=== PATIENT | male | born 1955 | race Caucasian/White ===

== ENCOUNTER → 2024-12-18 | Outpatient (CLI) | payer MEDICARE, SELFPAY ==
[2024-12-21 13:07] LABS: H. PYLORI STOOL AG Negative (Negative)
== END | disposition home or self-care (01) ==
LOC: MTLAB 12:40
PROVIDERS: PCP Family Medicine
DX: R10.13 Epigastric pain (principal); K21.9 Gastro-esophageal reflux disease without esophagitis
CPT/HCPCS: 87338

== ENCOUNTER 2025-02-10 05:14 | Day surgery (SDC) | payer MEDICARE, SELFPAY ==
[2025-02-10] VITALS (9 sets, daily range): BP systolic 89–159; BP diastolic 69–94; PULSE 65–67; RESP 16–18; TEMP 36.5–36.8; O2SAT 95–98; BMI 28.8
--- OUTSIDE RECORDS SUMMARY | 2025-02-10 05:17 | XMS RPT_ITS | CCD ---
Author Organization [facility] Care Team Providers Care Landscape Painter Name Role Phone STEPHANIE GREEN MD Admitting Unavailable STEPHANIE GREEN MD Attending Unavailable STEPHANIE GREEN MD Primary Care Unavailable IRMA GREEN Referring Unavailable IRMA GREEN Consulting Unavailable PROVIDER, UNKNOWN Consulting Unavailable PROVIDER, UNKNOWN Consulting Unavailable PROVIDER, UNKNOWN Consulting Unavailable IRMA GREEN Admitting Unavailable IRMA GREEN Attending Unavailable IRMA GREEN Primary Care Unavailable IRMA GREEN Referring Unavailable IRMA GREEN Consulting Unavailable PROVIDER, UNKNOWN Consulting Unavailable PROVIDER, UNKNOWN Consulting Unavailable PROVIDER, UNKNOWN Consulting Unavailable Stephanie Green Primary Care Provider [phone] STEPHANIE GREEN Primary Care Unavailable SHEILA NOLAN Attending Unavailable STEPHANIE GREEN Primary Care Unavailable AISHA LOPEZ Referring UnavailSTEPHANIE Jauregui Primary Care Unavailable AISHA LOPEZ Referring UnavailAISHA Marcos Attending UnavailSTEPHANIE Jauregui Primary Care Unavailable IRMA GREEN MD Unavailable STEPHANIE GREEN MD Unavailable REY Unavailable Unavailable ENT, GENERAL Unavailable Unavailable JONI LAWRENCE MD Unavailable [phone] Myla Pereyra RN Unavailable Unavailable CR CARRANZA MD Unavailable Bladimir THOMPSON MD Unavailable YURI LAWRENCE Unavailable Unavailable Geronimo LAWRENCE MD Unavailable JAYLEEN ALLEN Unavailable Unavailable Lucrecia Tan Unavailable Unavailable Kari Robbins Unavailable Unavailable LYNN ROBBINS MD Unavailable Asa RN, Alyson Unavailable Unavaila leonie Zuñiga RN, Tessy Unavailable Unavailable Unavailable Unavailable Unavailable Unavailable Jan PORTILLO, Lucrecia Attending Provider [phone] Jose BARTON, Dr. Olivo Primary Care Provider Jan TREJOC, Lucrecia Referring Provider Lucrecia Montoya Attending Unavailable Lucrecia Montoya Attending Unavailable Lucrecia Montoya Referring Unavailable Irma Green Primary Care Unavailable Irma Green Referring Unavailable FriendTim Attending Unavailable Irma Green Primary Care Unavailable Allergies Allergy Classification Reported Allergen(s) Allergy Type Date of Onset Reaction(s) Facility (7 sources) Lactose; Translations: [LACTOSE] Drug Allergy 03-23-20 15 [facility] Work Phone: (5 sources) Wheat gluten extract; Translations: [GLUTEN] Drug Allergy 03-23-20 15 [facility] Work Phone: (6 sources) hydroCHLOROthiazide Drug Allergy [facility]. (12 sources) Kendell (Renamed from KENDELL Inhibitors) Cough [facility]. (2 sources) Codeine Drug Allergy 12-16-19 25 [facility] (1 source) Codeine Drug Allergy 02-06-20 25 [facility] (1 source) Lactose Drug Allergy 02-06-20 25 [facility] Medications Current Medications Medication Drug Class(es) Dates Sig (Normalized) Sig (Original) acetaminophen 325 mg / oxyCODONE hydrochloride 5 mg oral tablet (2 sources) Opioid Agonist Start: 05-04-2015 Oxycodone-Acetamino phen 1 TABLET tablet Active 1 {tbl} PO EVERY 6 HOURS NEEDED as needed for Pain May 04, 2015 12:00am chlorproMAZINE hydrochloride 10 mg oral tablet (2 sources) Phenothiazine Start: 05-04-2015 Chlorpromazine Hcl 10 MG tablet Active 25 mg PO Q8H as needed for Hiccups May 04, 2015 12:00am Daily Multiple Vitamin oral tablet (6 sources) take 1 tablet by mouth once daily Daily Multiple Vitamin oral tablet ; 1 daily Comments: OTC Comment on above: OTC famotidine 40 mg oral tablet (2 sources) Histamine-2 Receptor Antagonist Start: 12-15-2024 take 1 tablet by mouth at bedtime Famotidine 40 mg tablet Active 40 mg PO AT BEDTIME December 15, 2024 12:00am iv contrast (will be provided with radiology test) (1 source) Start: 01-23-2023 End: 01-23-2023 inject 1 dose intravenously once, then inject 1 dose intravenously once iv contrast (will be provided with radiology test) Indications: Encounter for follow-up examination after completed treatment for malignant neoplasm , History of cancer tonsil , Sore throat Inject 1 Each intravenously one time only for [address] Neck W IVCON No IV access, insert saline lock prior to the sedation, infusion, injection for imaging exam. Discontinue saline lock post exam. If Pt. has a central line or IVAD, may access for administration according to line specific nursing protocol. Once exam is complete flush line and de-access according to line specific nursing protocol in the CT contrast administration guidelines link. 1 Each 0 01/23/2023 01/23/2023 Active Comment on above: Inject 1 Each intrav enously one time only for [address] Neck W IVCON No IV access, insert saline lock prior to the sedation, infusion, injection for imaging exam. Discontinue saline lock post exam. If Pt. has a central line or IVAD, may access for administration according to line specific nursing protocol. Once exam is complete flush line and de-access according to line specific nursing protocol in the CT contrast administration guidelines link. Lactose-Reduced Food With Fibr (Jevity 1.5 Gary) 1,500 ML liquid (2 sources) Start: 05-04-2015 take 1 mL by mouth five times daily Lactose-Reduced Food With Fibr (Jevity 1.5 Gary) 1,500 ML liquid Active 237 mL PO 5 TIMES DAILY May 04, 2015 12:00am losartan potassium 100 mg oral tablet (12 sources) Angiotensin 2 Receptor Horace Start: 08-05-2024 losartan 100 mg tablet ; 1 (one) Tablet daily for 90 days Quantity: 90 {Tablet} Refills: 3 Ordered: 05-Aug-2024 MD IRMA GREEN Start: 05-Aug-2024 Start: 06-28-2023 losartan 100 m g tablet ; 1 (one) Tablet daily for 90 days Quantity: 90 {Tablet} Refills: 3 Ordered: 28-Jun-2023 MD IRMA GREEN Start: 28-Jun-2023 Start: 04-10-2015 Losartan 100 M G tablet Active 50 mg PO DAILY April 10, 2015 12:00am Start: 02-22-2015 [facility] losartan (COZAAR) 100 mg tablet Take 100 mg by mouth once daily. 0 02/22/2015 Active Comment on above: Take 100 mg by mouth once daily. omeprazole 40 mg delayed release oral capsule (4 sources) Proton Pump Inhibitor Start: 12-15-2024 Omeprazole 40 mg capsule,delayed release(DR/EC) Active 40 mg PO TWICE A DAY 60 December 15, 2024 12:00am Take 30 minutes before eating breakfast and dinner. Start: 04-26-2015 take 1 capsule by mo [facility] once daily Omeprazole (Prilosec) 40 MG capsule Active 40 mg PO DAILY April 26, 2015 12:00am ondansetron 8 mg disintegrating oral tablet (2 sources) Serotonin-3 Receptor Antagonist Start: 05-04-2015 take 1 tablet by mouth every eight hours as needed for nausea Ondansetron (Zofran Odt) 8 MG tablet,disintegrating Active 8 mg PO EVERY 8 HOURS NEEDED as needed for Nausea May 04, 2015 12:00am potassium chloride 1.33 meq/ml oral solution (6 sources) Start: 05-07-2015 take 40 mEq by mouth twice daily Potassium Chloride 20 MEQ/15 ML liquid Active 40 meq PO TWICE A DAY 14 May 07, 2015 12:00am Start: 04-26-2015 Potassium Chlo ride (Klor-Con M20) 20 MEQ tablet Active 20 meq GT TWICE A DAY April 26, 2015 12:36pm Start: 04-11-2015 End: 04-26-2015 take 1 tablet by mouth three times daily Potassium Chloride (K-Dur) 20 MEQ tablet Discontinued 20 meq PO THREE TIMES A DAY 60 April 11, 2015 12:00am April 26, 2015 12:36pm take 1 tb tid x 3 days then keep the rest medicine and take only if instructed by your doctor. verapamil hydrochloride 120 mg extended release oral tablet (14 sources) Calcium Channel Horace Start: 04-26-2015 take 1 tablet by mouth once daily Verapamil 120 MG tablet extended release Active 120 mg PO DAILY April 26, 2015 12:00am Start: 04-10-2015 End: 04-11-2015 Verapamil 120 MG tablet Disc ontinued 0.5 {tbl} PO DAILY April 10, 2015 12:00am April 11, 2015 11:07am Start: 01-25-2015 take 0.5 tablet by m outh once daily verapamil SR (CALAN SR, ISOPTIN SR) 120 mg CR tablet Take 1/2 tablet by mouth once daily. 0 01/25/2015 Active Comment on above: Take 1/2 tablet by m outh once daily. Completed/Discontinued Medications Medication Drug Class(es) Dates Sig (Normalized) Sig (Original) Ascorbic Acid (4 sources) Vitamin C take 1 tablet by mouth once daily ASCORBIC ACID (VITAMIN C ORAL) Indications: Tonsil cancer (HCC) Take 1 tablet by mouth once daily. 0 Active Comment on above: Take 1 tablet by [facility] once daily. azithromycin 250 mg oral tablet (18 sources) Macrolide Antimicrobial Start: 06-28-2023 End: 07-03-2023 azithromycin 250 mg tablet ; 2 (two) Tablet on day one, then 1 tablet daily for 4 days for 5 days Quantity: 6 {Tablet} Refills: 0 Ordered: 28-Jun-2023 MD IRMA GREEN Start: 28-Jun-2023 End: 03-Jul-2023 Status: Inactive Start: 04-06-2016 End: 04-11-2016 Azithromycin 250 MG Oral Tab let ; 2 (two) Tablet on day one, then 1 tablet daily for 4 days for 5 days Quantity: 6 {Tablet} Refills: 0 Ordered: 31-May-2016 MD IRMA GREEN Start: 06-Apr-2016 End: 11-Apr-2016 Status: Inactive Start: 08-14-2014 End: 08-19-2014 AZITHROMYCIN, 250MG (Oral Ta blet) ; 2 x 1 then 1 x 4 Tablet daily for 5 days Quantity: 6 {Tablet} Refills: 0 Ordered: 14-Aug-2014 MD CR CARRANZA Start: 14-Aug-2014 End: 19-Aug-2014 Status: Inactive Comments: take two tablets day one and then one tablet daily for 4 days Comment on above: take two tablets day one and then one tablet daily for 4 days Calcium Carbonate / vitamin D3 (4 sources) take 1 capsule by mouth once daily CALCIUM CARBONATE/VITAMIN D3 (CALCIUM + D ORAL) Take 1 capsule by mouth once daily. 0 Active Comment on above: Take 1 capsule by [facility] once daily. codeine phosphate 2 mg/ml / guaiFENesin 20 mg/ml oral solution (6 sources) Opioid Agonist Start: 3 End: 3 take 1 [tsp_us] by mouth every six hours as needed GUAIFENESIN AC, 100-10MG/5ML (Oral Syrup) ; 1 (one) tsp every six hours as needed for cough for 5 days Quantity: 4 {oz} Refills: 0 Ordered: 18-Nov-2013 MD LYNN ROBBINS Start: 27-Jun-2013 End: 02-Jul-2013 Status: Inactive Comments: Medication taken as needed. Do not take while driving Comment on above: Medication taken as needed. Do not take while driving doxycycline monohydrate 100 mg oral capsule (12 sources) Tetracycline-class Drug Start: 6 End: 6 take 1 capsule by mouth twice daily Doxycycline Monohydrate 100 MG Oral Capsule ; 1 (one) Capsule two times daily for 7 days Quantity: 14 {Capsule} Refills: 0 Ordered: 31-May-2016 MD IRMA GREEN Start: 10-Apr-2016 End: 17-Apr-2016 Status: Inactive Start: 05-27-2012 End: 06-06-2012 take 1 capsule by mouth twice daily DOXYCYCLINE HYCLATE, 100MG (Oral Capsule) ; 1 Capsule two times daily for 10 days Quantity: 20 {Capsule} Refills: 0 Ordered: 12-Jun-2012 MD STEPHANIE GREEN Start: 27-May-2012 End: 06-Jun-2012 Status: Inactive hydroCHLOROthiazide 25 mg oral tablet (8 sources) Thiazide Diuretic Start: 04-10-2014 End: 06-22-2015 take 1 tablet by mouth once daily Hydrochlorothiazide 25 MG tablet Discontinued 25 mg PO DAILY April 10, 2015 12:00am April 11, 2015 11:07am Comment on above: Amanda Blanco. MULTIVITAMIN ORAL (4 sources) take 1 tablet by mouth once daily MULTIVITAMIN ORAL Take 1 tablet by mouth once daily. 0 Active Comment on above: Take 1 tablet by avani th once daily. oxyCODONE hydrochloride 10 mg oral tablet (6 sources) Opioid Agonist take 2 tablets by mouth every six hours OXYCODONE HCL, 10MG (Oral Tablet) ; 2 q 6 hrs pain (10 MG) Status: Inactive Comments: Dr Lozada Comment on above: Dr Lozada Potassium (4 sources) take 1 tablet by mouth every other day POTASSIUM ORAL Take 1 tablet by mouth every other day. 0 Active Comment on above: Take 1 tablet by avani th every other day. pravastatin sodium 10 mg oral tablet (6 sources) HMG-CoA Reductase Inhibitor Start: 03-13-2012 End: 05-27-2012 take 1 tablet by mouth at bedtime PRAVASTATIN SODIUM, 10MG (Oral Tablet) ; 1 (one) Tablet at bedtime for 30 days Quantity: 30 {Tablet} Refills: 12 Ordered: 27-May-2012 DEION Bray Start: 13-Mar-2012 End: 27-May-2012 Status: Inactive red yeast rice 600 mg oral capsule (6 sources) take 1 capsule by mouth twice daily RED YEAST RICE EXTRACT, 600MG (Oral Capsule) ; 1 two times daily (600 MG) Status: Inactive Problems Active Problems Problem Classification Problem Date Documented Da te Episodic/Chronic Abdominal pain (5 sources) Epigastric pain; Translations: [Epigastric pain] Onset: 5 12-15-2024 Episodic Acute bronchitis (6 sources) Acute bronchitis 10-04-2011 Episodic Administrative/social admission (20 sources) Issue of repeat prescriptions 01-25-2012 Episodic Cancer of head and neck (20 sources) Malignant tumor of tonsil; 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 Biopsy Danuta Montilla, ENT, [place]; to Eddy Lozada, [facility] Treatment ended 05-21-15S/P Chemotherapy. Cancer of head and neck (3 sources) History of malignant neoplasm of tonsil; Translations: [Personal history of malignant neoplasm of other sites of lip, oral cavity, and pharynx] Onset: 3 01-23-2023 Episodic Chronic obstructive pulmonary disease and bronchiectasis (18 sources) Bronchitis; Translations: [Bronchitis, not specified as acute or chronic] 04-10-2016 Episodic Disorders of lipid metabolism (20 sources) Hyperlipidemia; Translations: [Hyperlipidemia, unspecified] 10-16-2022 Chronic Comment on above: diet controlled. 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 12-07-2016 Chronic Immunizations and screening for infectious disease (12 sources) Requires diphtheria, tetanus and pertussis vaccination; Translations: [Encounter for immunization] 06-22-2015 Episodic Other aftercare (2 sources) H/O: malignant neoplasm; Translations: [Encounter for follow-up examination after completed treatment for malignant neoplasm] 01-23-2023 Episodic Other aftercare (1 source) Encounter for follow-up examination after completed treatment for malignant neoplasm; Translations: [Encounter for follow-up examination after completed treatment for malignant neoplasm] Onset: Episodic Other aftercare (6 sources) Patient encounter status; Translations: [Encounter for therapeutic drug level monitoring] 01-22-2016 Episodic Other connective tissue disease (6 sources) Pain in left thumb; Translations: [Pain in left finger(s)] 09-01-2014 Episodic Other gastrointestinal disorders (2 sources) Finding of abdomen; Translations: [Other specified symptoms and signs involving the digestive system and abdomen] 12-15-2024 Episodic Other liver diseases (2 sources) Fatty (change of) liver, not elsewhere classified; Translations: [Nonalcoholic fatty liver disease] 04-11-2015 Chronic Other lower respiratory disease (6 sources) Cough; Translations: [Cough] 08-14-2014 Episodic Other nutritional; endocrine; and metabolic disorders (12 sources) Obese class I; Translations: [Obesity, unspecified] 12-07-2016 Chronic Other nutritional; endocrine; and metabolic disorders (20 sources) H/O: raised blood lipids; Translations: [Personal history of other endocrine, nutritional and metabolic disease] 06-18-2017 Episodic Other nutritional; endocrine; and metabolic disorders (12 sources) Overweight; Translations: [Overweight] 12-23-2012 Episodic Other screening for suspected conditions (not mental disorders or infectious disease) (12 sources) Screening status; Translations: [Encounter for screening for malignant neoplasm of prostate] 03-12-2012 Episodic Other skin disorders (12 sources) Mass of neck; Translations: [Localized swelling, mass and lump, neck] 12-16-2014 Episodic Comment on above: Right side. Other upper respiratory infections (7 sources) Bacterial sinusitis; Translations: [Chronic sinusitis, unspecified] 09-29-2021 Chronic Other upper respiratory infections (15 sources) Sore throat symptom; Translations: [Acute pharyngitis, unspecified] Onset: 3 01-23-2023 Episodic Pneumonia (except that caused by tuberculosis or sexually transmitted disease) (18 sources) Atypical pneumonia; Translations: [Pneumonia, unspecified organism] 06-28-2023 Episodic Unclassified (6 sources) [facility] Onset: 5 05-12-2015 Comment on above: N/V due to chemo; Di yonas 05/11/15 Unclassified (6 sources) LAB DRAW - The labs drawn today include: CMP, Hgb A1C, Lipid Panel and PSA. The lab was drawn from the left antecubital vein. The lab was ordered by Dr. Robbins. 03-12-2012 Unclassified (6 sources) LAB DRAW - The labs drawn today include: CMP and Lipid Panel. The lab was drawn from the left antecubital vein. The lab was ordered by Dr. Dr. Green. 01-05-2011 Past or Other Problems Problem Classification Problem Date Documented Date Episodic/Chronic Coronary atherosclerosis and other heart disease (20 sources) Coronary atherosclerosis and other heart disease 10-16-2022 Disorders of teeth and jaw (4 sources) Tooth disorder; Translations: [Disorder of teeth and supporting structures, unspecified] Onset: 01-30-2018 01-30-2018 Episodic Headache; including migraine (20 sources) Headache; including migraine 10-16-2022 Unclassified (6 sources) Fever - The onset of the fever has been acute. Note for Fever: Pt c/o body aches, chills, sore throat, and slight cough. Denies runny nose. Symptoms started a few weeks ago. 06-28-2023 Unclassified (6 sources) !Patient notification of lab results - Dr. Green. The test(s) that you had done were/was a CMP (kidneys, liver, nutrition, sugar) and a lipid panel (cholesterol and triglycerides). The results of your testing were to goal . You should call our office if you have any questions. 08-07-2019 Unclassified (5 sources) HYPERTENSION - Note for HYPERTENSION: No headaches, dizzy spells, swelling of ankles, chest pain or shortness of breath. Some cough. 08-05-2019 Unclassified (5 sources) [ADDITIONAL REASON] Immunization - Immunizations discussed with patient/ parent: yes. Note for For immmunization: Does not take vaccinations 08-05-2019 Unclassified (2 sources) Immunization - Immunizations discussed with patient/ parent: yes (declines flu shot). 07-04-2018 Unclassified (6 sources) !Patient notification of lab results - Jose. The test(s) that you had done were/was a CMP (kidneys, liver, nutrition, sugar) and a lipid panel (cholesterol and triglycerides). Your tests showed the following abnormalities: high cholesterol, otherwise OK . Please note that we have included copies of your results and follow up as scheduled. 06-18-2017 Unclassified (2 sources) Immunization - Immunizations discussed with patient/ parent: yes. 06-18-2017 Unclassified (2 sources) [ADDITIONAL REASON] HYPERTENSION - Note for HYPERTENSION: No headaches, dizzy spells, swelling of ankles, chest pain or shortness of breath. Has dry mouth from Chemo therapyFasting for Lab work. 06-18-2017 Unclassified (6 sources) HYPERTENSION - Note for HYPERTENSION: Last visit was 8 months ago.. 12-07-2016 Unclassified (6 sources) !Patient notification of lab results 1 - Jose. The test(s) that you had done were/was a BMP (potassium, sodium, sugar, and kidney function) and a lipid panel (cholesterol and triglycerides). Your tests showed the following abnormalities: high cholesterol . (Your cholesterol is a bit higher than last time we checked it. I think you can control this with diet and weight loss. We should recheck it again in 6 months. If it remains high, it would be recommended to start a cholesterol-lowering medication.) You should call our office if you have any questions. 04-07-2016 Unclassified (2 sources) cough - The onset of the cough has been acute and has been occurring for 1 week. The symptoms have been associated with runny nose, while the symptoms have not been associated with fever. 04-06-2016 Unclassified (2 sources) [ADDITIONAL REASON] HYPERTENSION - Note for HYPERTENSION: Last visit was 5 months ago. 04-06-2016 Unclassified (6 sources) Routine Check - Patient is here to review the medical problem(s) of hypertension. Note for Routine Check : Starting to eat better. Here for exam. 08-17-2015 Unclassified (6 sources) Routine Check - Patient is here to review the medical problem(s) of hypertension. Note for Routine Check : needs refill on meds. Refused flu shot. Out of meds x 1-2 days. off HCTZ due to low Potassium. Here for exam. 06-22-2015 Unclassified (6 sources) !Patient notification of lab results 1 - Green. The test(s) that you had done were/was a CT scan. Your tests showed the following abnormalities: it looks like a clump of lymph nodes in the right side of the neck . You should call our office to schedule a referral (recommend seeing an ENT specialist in [place]). 12-16-2014 Unclassified (2 sources) Skin lesion - The skin lesion has been occurring for months. The skin lesion is characterized as raised above the skin. The skin lesion is located on the neck (right side). There has been no associated pain. 12-10-2014 Unclassified (6 sources) Injury - The patient reports that it was accidental (slipped on ice) and happened at home. The date of the injury was on 09-01-14. The injury is described as being located in the finger (left thumb).The pain is described as mild. The injury happened due to a falling down. Note for Injury: Here for exam. 09-01-2014 Unclassified (6 sources) cough - The onset of the cough has been sudden and has been occurring in a persistent pattern for 4 days. The course has been increasing. The cough is characterized as productive of purulent sputum. The symptoms have been associated with fever, hoarseness, runny nose, sore throat and wheezing, while the symptoms have not been associated with chest pain or dyspnea. 08-14-2014 Unclassified (6 sources) !Patient notification of lab results 1 - Jb. Note for !Patient notification of lab results 1: Carballo, your cholesterol and other labs look good. Keep doing what your doing! 04-10-2014 Unclassified (2 sources) [ADDITIONAL REASON] HYPERTENSION - Note for HYPERTENSION: No headaches, dizzy spells, or swelling of ankles. Is fasting for Lab 04-10-2014 Unclassified (6 sources) sore throat - The onset of the sore throat has been sudden and has been occurring in a persistent pattern for 1 week. The course has been worsening. The symptoms have been associated with chills, cough, fever and runny nose. 06-27-2013 Unclassified (6 sources) !Patient notification of lab results 1 - Jose. The test(s) that you had done were/was a CMP (kidneys, liver, nutrition, sugar) and a lipid panel (cholesterol and triglycerides). Your tests showed the following abnormalities: mkildly elevated cholesterol . Please note that we have included copies of your results, continue your current medication/therapy and follow up as scheduled. 05-27-2013 Unclassified (6 sources) HYPERTENSION - Note for HYPERTENSION: No headaches, dizzy spells, or swelling of anklesIs also fasting for lab work. 05-26-2013 Unclassified (6 sources) HYPERTENSION - Note for HYPERTENSION: No headaches, dizzy spells, or swelling of ankles 12-23-2012 Unclassified (6 sources) !Patient notification of lab results 1 - Dr. Green. The test(s) that you had done were/was a CMP (kidneys, liver, nutrition, sugar) and a lipid panel (cholesterol and triglycerides). Your tests showed the following abnormalities: high cholesterol . Please adjust your therapy by increasing red yeast rice to 3/day. Please note that we have included copies of your results. 06-25-2012 Unclassified (6 sources) cough - The onset of the cough has been acute and has been occurring for 6 weeks. Note for cough: feels dizzy when driving. Mucus in throat, but no head cold.. 05-27-2012 Unclassified (6 sources) !Patient notification of lab results 1 - Dr. Robbins. The test(s) that you had done were/was an A1C (three month sugar average), a CMP (kidneys, liver, nutrition, sugar), a lipid panel (cholesterol and triglycerides) and a PSA (blood test for prostate cancer). Your tests showed the following abnormalities: high NON HDL cholesterol . Please adjust your therapy by adding pravastatin 10 mgm daily, realize that we have sent the new prescription(s) to your preferred pharmacy and review the enclosed special instruction sheet(s) on non HDL cholesterol. You should call our office to schedule an appointment for repeat lab after being on your new dose 4 weeks (fasting cholesterol). Please note that we have included copies of your results and follow up as scheduled. 03-13-2012 Unclassified (2 sources) [ADDITIONAL REASON] HYPERTENSION - Note for HYPERTENSION: needs refill on meds. Clear up dosage on Verapamil.(120 or 240) 02-02-2012 Unclassified (5 sources) sore throat - The onset of the sore throat has been sudden and has been occurring for 5 days. The course has been worsening. The symptoms have been associated with chills, cough (occassional), fever and runny nose. 10-04-2011 Unclassified (5 sources) [ADDITIONAL REASON] cough - The onset of the cough has been gradual and has been occurring in a persistent pattern for 4 days. The course has been increasing. The cough is characterized as productive of mucoid sputum. The symptoms have been associated with fever, runny nose (clear) and sore throat (gone), while the symptoms have not been associated with chest pain, dyspnea or hoarseness. 10-04-2011 Unclassified (6 sources) *Patient notification of lab results 1 - Dr. Green. The test(s) that you had done were/was blood work. The results of your testing were normal (near normal) . Please note that we have included copies of your results. 01-12-2011 Unclassified (6 sources) HYPERTENSION - Note for HYPERTENSION: pt states he feels well with minor complaints (aches and pains), good compliance with medications 12-27-2010 Unclassified (6 sources) recheck - hypertension and reports no headaches. 06-17-2010 Unclassified (5 sources) [ADDITIONAL REASON] Immunization - Immunizations discussed with patient/ parent: yes (declines flu shot.). 08-05-2024 Unclassified (1 source) Immunization - Immunizations discussed with patient/ parent: yes. Note for For immmunization: Does not take vaccinations 08-05-2019 Unclassified (1 source) [ADDITIONAL REASON] HYPERTENSION - Note for HYPERTENSION: No headaches, dizzy spells, swelling of ankles, chest pain or shortness of breath. Some cough. 08-05-2019 Unclassified (1 source) cough - The onset of the cough has been gradual and has been occurring in a persistent pattern for 4 days. The course has been increasing. The cough is characterized as productive of mucoid sputum. The symptoms have been associated with fever, runny nose (clear) and sore throat (gone), while the symptoms have not been associated with chest pain, dyspnea or hoarseness. 10-04-2011 Unclassified (1 source) [ADDITIONAL REASON] sore throat - The onset of the sore throat has been sudden and has been occurring for 5 days. The course has been worsening. The symptoms have been associated with chills, cough (occassional), fever and runny nose. 10-04-2011 Unclassified (4 sources) [ADDITIONAL REASON] Immunization - Immunizations discussed with patient/ parent: yes (declines flu shot). 07-04-2018 Unclassified (4 sources) HYPERTENSION - Note for HYPERTENSION: No headaches, dizzy spells, swelling of ankles, chest pain or shortness of breath. Has dry mouth from Chemo therapyFasting for Lab work. 06-18-2017 Unclassified (4 sources) [ADDITIONAL REASON] Immunization - Immunizations discussed with patient/ parent: yes. 06-18-2017 Unclassified (4 sources) HYPERTENSION - Note for HYPERTENSION: Last visit was 5 months ago. 04-06-2016 Unclassified (4 sources) [ADDITIONAL REASON] cough - The onset of the cough has been acute and has been occurring for 1 week. The symptoms have been associated with runny nose, while the symptoms have not been associated with fever. 04-06-2016 Unclassified (4 sources) [ADDITIONAL REASON] Skin lesion - The skin lesion has been occurring for months. The skin lesion is characterized as raised above the skin. The skin lesion is located on the neck (right side). There has been no associated pain. 12-10-2014 Unclassified (4 sources) HYPERTENSION - Note for HYPERTENSION: No headaches, dizzy spells, or swelling of ankles. Is fasting for Lab 04-10-2014 Unclassified (4 sources) HYPERTENSION - Note for HYPERTENSION: needs refill on meds. Clear up dosage on Verapamil.(120 or 240) 02-02-2012 Results Test Name Value Interpretation Reference Range Facility H. PYLORI STOOL AGon 025 H PYLORI STL AG Negative Normal Negative [facility] Comment on above: Order Comment: PT KE PT IT OM ICE Result Comment: Perf ormed at: CB - [facility] [address] [id number] Catering Staff Member: Tay Lizarraga PhD, Phone: [phone] Performed By: #### L 3100.1950 #### [facility] [address] [place], [place], [id number] Stool Helicobacter pylori an tigen detection by immunoassayOrdered By: Lucrecia Montoya on 12-18-2024 H. pylori Ag IA Ql (Stl) Negative Negative [facility] Comment on above: Performed at: CB - [facility] [address] [id number] Director: Tay Lizarraga PhD, Phone: [phone] Gastroenterology Visit Repor ton 12-15-2024 Gastroenterology Visit Report [facility] [address] [place] [address] OFFICE VISIT Date of Service: 12/15/24 MR#: [id number] Acct: [id number] Name: PANIAGUAHARIS SOMMER Danuta Rep #: [id number] : 1955 Provider: BANDAR benjamin Age/Sex: 69/M [place] [facility] [place] [facility] [place]: Signed Intake Vital Signs 12/15/24 07:53 Height 5 ft 6 in Weight: 179 lb BMI 28.8 BP 144/90 H Blood Pressure Location Lt brachial Pulse 74 Pulse Oximetry (%) 96 Oxygen Delivery Method room air Intake Visit Reasons: Abdominal complaints Chief Complaint: nausea/vomiting Allergies codeine Adverse Reaction (Verified 12/15/24 07:50) Nausea lactose Adverse Reaction (Verified 12/15/24 07:50) Nausea Medications ???Medication ???Instructions ???Recorded ???Confirmed ???Type losartan 100 mg tablet 50 mg PO DAILY 04/10/15 12/15/24 H istory Omeprazole [Prilosec] 40 mg PO DAILY 04/26/15 05/04/15 H istory potassium chloride 20 mEq 20 meq G-tube BID 04/26/15 5 History tablet,extended release(part/cryst) (Klor-Con M) verapamil 120 mg tablet,extended 120 mg PO DAILY 04/26/15 12/15/24 History release Chlorpromazine Hcl 25 mg PO Q8H PRN Hiccups 05/04/15 05/04/15 History lactose-reduced food with fiber 237 ml PO 5X/DAY 05/04/15 05/04/15 History 0.06 gram-1.5 kcal/mL oral liquid (Jevity 1.5 Gary) ondansetron 8 mg disintegrating 8 mg PO Q8H PRN PRN Nausea 5 05/04/15 History tablet (Zofran ODT) oxycodone-acetaminoph en 5 mg-325 1 tab PO Q6H PRN PRN Pain 05/04/15 05/04/15 History mg tablet potassium chloride 20 mEq/15 mL 40 meq (30 mL) PO BID 14 days 04/1612/15/24 Rx oral liquid famotidine 40 mg tablet 40 mg PO QHS #30 tabs 12/15/2409/09 Rx omeprazole 40 mg capsule,delayed 40 mg PO BID #60 caps 12/15/2409/09 Rx release Have you fallen in the past year?: No PFSH Family History Mother Arthritis Hypertension Father Diabetes Social History Smoking Status: Never smoker alcohol intake: never HPI HPI Chief Complaint: nausea/vomiting Details: HARIS PANIAGUA, is a 69 M who presents to the office today for establishment with [facility] regarding epigastric abdominal pain that starts 2 hours postprandial. He had been diagnosed with tonsillar cancer, underwent chemotherapy and radiation therapy by Dr. Lozada. Reports frequent dry mouth due to saliva glands being damaged or removed. He knows to take smaller bites and keep foods moist to avoid difficulty swallowing. He reports that he does the best with mashed potato consistency. He reports increased sinus drainage and occasional reflux. He denies heartburn, cough, throat clearing, nausea, emesis, abdominal bloating, constipation, diarrhea, hematochezia, and melena. He states that the epigastric abdominal is not dependent on any type of food as it occurs after every meal now. It started being a mild pain occasionally. Currently he rates the pain as 7/10 and describes it as burning and gnawing. He denies taking any PPIs, H2As, Tums or Maalox. He just massages the area and deals with it. It doesn't completely relieve the pain, but helps a little. He denies knowing if he's ever had a H.pylori infection or ulcer before. 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 ROS Const Constitutional: Positive for fatigue; No chills, fever(s) or weight change Eyes Eyes: No change in vision ENT ENT: Positive for difficulty swallowing; No abnormal hearing Resp Respiratory: No cough Cardio Cardiology: Positive for leg pain with exertion; No chest pain at rest or chest pain with exertion Gastro GI: Positive for abdominal pain, bloating, difficulty swallowing and excessive flatus; No belching, change in bowel habits, change in stool character, coffee ground emesis, constipation, cramping, diarrhea, heartburn, feeling full early, incontinent of stools, Vomiting blood/hematemesis, Blood in stool, loose stools, Black,tarry stools, nausea/dyspepsia, pain with swallowing, vomiting or other Musc Musculoskeletal: Positive for joint pain, muscle weakness, stiffness, sciatica and leg pain with exertion Skin Skin: No yellowing of the eye or itchy eyes Neuro Neurology: No abnormal hearing Psych Psychiatric: No anxiety and No depression Endo Endocrine: Positive for fatigue; No cold intolerance, heat intolerance or weight change Aller/Imm Allergy/Immunologic: No food intolerance or itchy eyes Petr/Lymp Hematologic/Lymphatic : No easy bleeding or easy bruising Exam Const General: cooperative, healthy appearing, comfortable and no acute distress Nutritional Appearan (more content not included)... Normal [facility] No Panel Informationon 08-05 [facility] [place].; [facility]. [facility] [place].; [facility]. [facility].; [employer]. No Panel InformationOrdered By: Geronimo LAWRENCE on 08-05-2024 [employer]. Work Phone: No Panel Informationon 07-29 [employer]. CNOVon 02-12-2023 CNOV Office Visit (OTOLMN ) HARIS PANIAGUA ([id number]) 1955 M Date Time Provider Department 02/12/23 8:30 AM SHEILA NOLAN OTOLMN During your visit today, we recorded the following information about you: Sheila Nolan MD 03/14/2023 12:41 AM Signed [facility] established patient Previous Dr. Velasco patient, here for oncologic surveillance history bilateral tonsil cancers. 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 Former patient of Dr. Velasco. Patient has not been seen by ENT physician over the last 3 years, but has been experiencing increased phlegm and sore throat, as well as shortness of breath when breathing through his nose. Worse in the mornings and has been worsening since completing surgery. He also endorses weight loss Seen by Aisha on 01/23. [place] at the time revealed narrowed nasopharynx but no lesions, masses, or ulcerations. CT Neck on 01/30 with QUINN, no LAD. Patient also has a non-healing scab present below the auricle. States that scab has been present for 2 months without healing. PAST MEDICAL HISTORY Diagnosis Date Arm fracture, left Hypertension Hypoglycemia PAST SURGICAL HISTORY Procedure Laterality Date EGD PERCUTANEOUS PLACEMENT GASTROSTOMY TUBE 04/26/15 PICC LINE INSERT/CONSULT 05/09/2015 TONSILLECTOMY HX Current Outpatient Medications Medication Sig Dispense Refill POTASSIUM ORAL Take 1 tablet by mouth every other day. CALCIUM CARBONATE/VITAMIN D3 (CALCIUM + D ORAL) Take 1 capsule by mouth once daily. MULTIVITAMIN ORAL Take 1 tablet by mouth once daily. ASCORBIC ACID (VITAMIN C ORAL) Take 1 tablet by mouth once daily. losartan (COZAAR) 100 mg tablet Take 100 mg by mouth once daily. verapamil SR (CALAN SR, ISOPTIN SR) 120 mg CR tablet Take 1/2 tablet by mouth once daily. No current facility-administered medications for this visit. ALLERGIES Allergen Reactions Gluten GI Upset Upset stomach and diarrhea Lactose GI Upset Upset stomach FAMILY HISTORY Problem Relation Age of Onset other (CHF) Father Social History Tobacco Use Smoking status: Never Smokeless tobacco: Never Vaping Use Vaping Use: Never used Substance Use Topics Alcohol use: No Drug use: No REVIEW OF RADIOLOGICAL FILMS AND RECORDS: CT NECK 01/30/23 Negative for cervical soft tissue mass. Negative for cervical lymphadenopathy by size criteria. CT CHEST 01/30/23 No developing suspicious mass or adenopathy in the chest LABS: None PHYSICAL EXAM: Vitals - There were no vitals taken for this visit. Constitutional - General Appearance: well developed, well nourished, without obvious deformities Communication: speaks with a normal voice without hoarseness Head AND Face - Overall: Scab, left inferior pre-auricular. No other obvious scars, lesions or masses Parotid and submandibular glands: no masses or tenderness Facial strength: normal and equal bilaterally Ear, Nose, Mouth AND Throat - Ears: both left and right external auditory canals and TM's are normal, no external deformities Nasal exam: mucosa is pink, left nasal spur, visible turbinates are normal on anterior rhinoscopy Mastication: moderate dentition Oral Cavity and oropharynx: mucosa, hard and soft palates, tongue, tonsil area, posterior pharyngeal wall, lips and gums are without lesions Neck: appears symmetric, and on palpation is without masses or lymphadenopathy Thyroid: no asymmetry, thyromegaly, or thyroid nodules on palpation Cranial Nerves: II: Pupillary reflexes normal III, IV, : EOM normal V: 1,2,3: normal sensation VII: Normal strength in all divisions IX, X: Normal voice, palatal elevation and sensation XI: Shoulder strength normal XII: Tongue mobility normal ASSESSMENT: Haris Paniagua is a 67 year old male with hx completion chemo XRT for Stage IVB, 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 No evidence of disease today. Plan to follow up in 1 year. PLAN: - Consider Xylimelts for xerostomia - Trial nasal steroids for difficulty breathing through nose - Non-healing scab - try moisturizer, if no improvement recommend dermatology appointment - Follow-up in 1 year Zaid Marie MD For the service of Sheila Nolan MD Otolaryngology Staff Attestation Details as per Dr. Marie's note which I have rev (more content not included)... Normal [facility] CT CHEST W IVCONon 3 CT CHEST W IVCON * * *Final Report* * * DATE OF EXAM: Jan 30 2023 3:47PM [facility] 0539 - CT CHEST W IVCON / PROCEDURE REASON: multiple diagnoses * * * * Physician Interpretation * * * * EXAMINATION: CHEST CT WITH CONTRAST CLINICAL HISTORY: Carcinoma of the tonsil Technique: Spiral CT acquisition of the chest from the thoracic inlet to the upper abdomen following IV contrast. MQ: [id number]_6 Contrast: 100 mL Omnipaque [address] Radiation dose: Integrated Dose-length product (DLP) for this visit = NECK 762 CHEST 189 mGy*cm CT Dose Reduction Employed: Automated exposure control(AEC) and iterative recon Comparison: 12/04/2018 RESULT: Limitations: None. Lines, tubes, and devices: None. Lung parenchyma and airways: No consolidation. No suspicious pulmonary nodule. The central airways are patent. Pleural space: No pleural effusion. No pleural thickening. Lower neck, lymph nodes, and mediastinum: The imaged thyroid gland is normal. No lymphadenopathy in the supraclavicular, axillary, mediastinal, or hilar regions. Heart, pericardium, and thoracic vessels: The thoracic aorta and main pulmonary artery are normal in caliber. The cardiac chambers are normal in size. Coronary artery atherosclerotic calcifications are noted, although the study is not optimized for coronary assessment. No pericardial effusion or thickening. Bones and soft tissues: No destructive bone lesion. Chest wall is unremarkable. Upper abdomen: No developing abnormality. Hepatic hemangioma Manual Qa Tester (topogram) images: No additional findings. IMPRESSION: No developing suspicious mass or adenopathy in the chest Sport Internship: PSCRaghu Transcribe Date/Time: Feb 01 2023 10:07A Dictated by : JONATHAN MONTES MD This examination was interpreted and the report reviewed and electronically signed by: JONATHAN MONTES MD on Feb 01 2023 10:11AM EST [id number] Normal [facility] CT NECK SOFT TISSUE W IVCONo n 01-30-2023 CT NECK SOFT TISSUE W IVCON * * *Final Report* * * DATE OF EXAM: Jan 30 2023 3:47PM [facility] 0013 - CT NECK SOFT TISSUE W IVCON / PROCEDURE REASON: multiple diagnoses * * * * Physician Interpretation * * * * CT OF THE NECK WITH IV CONTRAST HISTORY: History of tonsillar carcinoma. Sore throat. COMPARISON: PET/CT 04/07/2016 TECHNIQUE: A series of contiguous helical scans were performed from the skull base to the aortic arch following administration of intravenous contrast. Contrast: IV: 100 ml of Omnipaque 350 CT Radiation dose: Integrated Dose-length product (DLP) for this visit = NECK 762 CHEST 189 mGy*cm. CT Dose Reduction Employed: Automated exposure control(AEC) and iterative recon RESULT: There is no cervical soft tissue mass. There is no cervical lymphadenopathy by size criteria. Several level I lymph nodes are not enlarged by size criteria, largest measures 7 mm in the left submandibular region. Fatty replacement of the submandibular glands bilaterally in the right parotid gland. Nasal cavity and oral cavity are unremarkable within limitations of artifact from dental amalgam. The pharyngeal mucosal space is normal in appearance. The vallecula and epiglottis are within normal limits and the pre-epiglottic fat is maintained. Left parotid gland is unremarkable. Thyroid gland is unremarkable. Visualized carotid arteries and jugular veins are patent. Remainder of fascial spaces of the neck and contents are normal. Visualized intracranial contents are normal in appearance. The orbits are grossly without abnormality. The visualized paranasal sinuses are clear and the mastoid air cells are well aerated bilaterally there are except for opacified left maxillary sinus with mucosal thickening/enhancemen t, possibly odontogenic in origin given periapical lucency adjacent to the left second maxillary molar roots. The imaged lung apices are clear. Infraglottic airway is patent. Osseous structures are intact. IMPRESSION: Negative for cervical soft tissue mass. Negative for cervical lymphadenopathy by size criteria. Sport Internship: PSCB Transcribe Date/Time: Jan 30 2023 6:46P Dictated by : RICHARD BERKOWITZ MD This examination was interpreted and the report reviewed and electronically signed by: RICHARD BERKOWITZ MD on Jan 30 2023 6:52PM EST [id number] Normal [facility] No Panel Informationon 01-30 [facility] CBC W Auto Differential pane l (Bld)on 01-23-2023 Basophils (Bld) [#/Vol] 0.06 10*3/uL Normal <0.11 [facility] Comment on above: Order Comment: Speci men Type: BLOOD SPECIMEN Ordering Facility: [facility] Address: [address] [address] Performed By: #### 5 7021-8 #### [facility] [id number] [address] [place] [address] [place] Basophils/100 WBC (Bld) 0.7 % Normal C [facility] Comment on above: Order Comment: Speci men Type: BLOOD SPECIMEN Ordering Facility: [facility] Address: [address] Performed By: #### 5 7021-8 #### [facility] [id number] [place] [address] [place] Differential cell count method Nom (Bld) Auto Normal [facility] Comment on above: Order Comment: Speci men Type: BLOOD SPECIMEN Ordering Facility: [facility] Address: [address] Performed By: #### 5 7021-8 #### [facility] [id number] [address] [place] [address] [place] Eosinophils (Bld) [#/Vol] 0.17 10*3/uL Normal <0.46 [facility] Comment on above: Order Comment: Speci men Type: BLOOD SPECIMEN Ordering Facility: [facility] Address: [address] [place] [address] Performed By: #### 5 7021-8 #### [facility] [id number] [address] [place] [address] [place] Eosinophils/100 WBC (Bld) 2.0 % Normal [facility] Comment on above: Order Comment: Speci men Type: BLOOD SPECIMEN Ordering Facility: [facility] Address: [address] [place] [address] Performed By: #### 5 7021-8 #### [facility] [place] [id number] [address] [place] [address] [place] Erythrocyte distribution width (RBC) [Ratio] 12.9 % Normal 11.5-15.0 [facility] Comment on above: Order Comment: Speci men Type: BLOOD SPECIMEN Ordering Facility: [facility] Address: [address] [place], [place] [id number] Performed By: #### 5 7021-8 #### [facility] [id number] [address] [place] [address] [place] Hematocrit (Bld) [Volume fraction] 44.3 % Normal 39.0-51.0 [facility] Comment on above: Order Comment: Speci men Type: BLOOD SPECIMEN Ordering Facility: [facility] Address: [address] [place], [place] [id number] Performed By: #### 5 7021-8 #### [facility] [id number] [address] [place] [address] [place] Hemoglobin (Bld) [Mass/Vol] 14.8 g/dL Normal 13.0-17.0 [facility] Comment on above: Order Comment: Speci men Type: BLOOD SPECIMEN Ordering Facility: [facility] Address: [address] [place], [place] [id number] Performed By: #### 5 7021-8 #### [facility] [id number] [address] [place] [address] [place] Immature granulocytes (Bld) [#/Vol] 0.06 10*3/uL Normal <0.10 [facility] Comment on above: Order Comment: Speci men Type: BLOOD SPECIMEN Ordering Facility: [facility] Address: [address] [place], [place] [id number] Performed By: #### 5 7021-8 #### [facility] [place] [id number] [address] [place] [address] [place] Immature granulocytes/100 WBC (Bld) 0.7 % Normal [facility] Comment on above: Order Comment: Speci men Type: BLOOD SPECIMEN Ordering Facility: [facility] Address: [address] [place], [place] [id number] Performed By: #### 5 7021-8 #### [facility] [id number] [address] [place] [address] [place] Lymphocytes (Bld) [#/Vol] 1.17 10*3/uL Normal 1.00-4.00 [facility] [facility] Comment on above: Order Comment: Speci men Type: BLOOD SPECIMEN Ordering Facility: [facility] Address: [address] Performed By: #### 5 7021-8 #### [facility] [id number] [address] [place] [address] [place] Lymphocytes/100 WBC (Bld) 14.1 % Normal [facility] Comment on above: Order Comment: Speci men Type: BLOOD SPECIMEN Ordering Facility: [facility] Address: [address] [place], [place] [address] Performed By: #### 5 7021-8 #### [facility] [id number] [address] [place] [address] MCH (RBC) [Entitic mass] 31.1 pg Normal 26.0-34.0 [facility] Comment on above: Order Comment: Speci men Type: BLOOD SPECIMEN Ordering Facility: [facility] Address: [address] [place], [place] [address] Performed By: #### 5 7021-8 #### [facility] [place] [id number] [address] [place] [address] [place] MCHC (RBC) [Mass/Vol] 33.4 g/dL Normal 30.5-36.0 [facility] Comment on above: Order Comment: Speci men Type: BLOOD SPECIMEN Ordering Facility: [facility] Address: [address] [place] [address] Performed By: #### 5 7021-8 #### [facility] [place] [id number] [address] [place] [address] [place] MCV (RBC) [Entitic vol] 93.1 fL Normal 80.0-100.0 [facility] Comment on above: Order Comment: Speci men Type: BLOOD SPECIMEN Ordering Facility: [facility] Address: [address] [place] [phone] Performed By: #### 5 7021-8 #### [facility] [id number] [address] [place] [address] [place] Monocytes (Bld) [#/Vol] 0.85 10*3/uL Normal <0.87 [facility] Comment on above: Order Comment: Speci men Type: BLOOD SPECIMEN Ordering Facility: [facility] Address: [address] [place] [address] Performed By: #### 5 7021-8 #### [facility] [place] [id number] [address] [place] [address] [place] Monocytes/100 WBC (Bld) 10.2 % Normal C [facility] Comment on above: Order Comment: Speci men Type: BLOOD SPECIMEN Ordering Facility: [facility] Address: [address] [place] [address] Performed By: #### 5 7021-8 #### [facility] [id number] [address] [place] [address] [place] Neutrophils (Bld) [#/Vol] 6.00 10*3/uL Normal 1.45-7.50 [facility] Comment on above: Order Comment: Speci men Type: BLOOD SPECIMEN Ordering Facility: [facility] Address: [address] [place] [address] Performed By: #### 5 7021-8 #### [facility] [id number] [address] [place] [address] [place] Neutrophils/100 WBC (Bld) 72.3 % Normal [facility] Comment on above: Order Comment: Speci men Type: BLOOD SPECIMEN Ordering Facility: [facility] Address: [address] [place], [place] [address] Performed By: #### 5 7021-8 #### [facility] [id number] [address] [place] [address] [place] Nucleated RBC (Bld) [#/Vol] 10*3/uL Normal <0.01 [facility] Comment on above: Order Comment: Speci men Type: BLOOD SPECIMEN Ordering Facility: [facility] Address: [address] [place], [place] [address] Performed By: #### 5 7021-8 #### [facility] [id number] [address] [place] [address] [place] Nucleated RBC/100 WBC (Bld) [Ratio] 0.0 /100 WBC Normal [facility] Comment on above: Order Comment: Speci men Type: BLOOD SPECIMEN Ordering Facility: [facility] Address: [address] [place] [address] Performed By: #### 5 7021-8 #### [facility] [id number] [address] [place] [address] [place] Platelet mean volume (Bld) [Entitic vol] 9.2 fL Normal 9.0-12.7 [facility] Comment on above: Order Comment: Speci men Type: BLOOD SPECIMEN Ordering Facility: [facility] Address: [address] Performed By: #### 5 7021-8 #### [facility] [id number] [address] [place] [address] [place] Platelets (Bld) [#/Vol] 205 10*3/uL Normal 150-400 [facility] Comment on above: Order Comment: Speci men Type: BLOOD SPECIMEN Ordering Facility: [facility] Address: [address] [place], [place] [address] Performed By: #### 5 7021-8 #### [facility] [id number] [address] [place] [address] [place] RBC (Bld) [#/Vol] 4.76 10*6/uL Normal 4.20-6.00 [facility] Comment on above: Order Comment: Speci men Type: BLOOD SPECIMEN Ordering Facility: [facility] Address: [address] [place] [address] Performed By: #### 5 7021-8 #### [facility] [id number] [address] [place] [address] [place] WBC (Bld) [#/Vol] 8.31 10*3/uL Normal 3.70-11.00 [facility] Comment on above: Order Comment: Speci men Type: BLOOD SPECIMEN Ordering Facility: [facility] Address: [address] [place], [place] [address] Performed By: #### 5 7021-8 #### [facility] [id number] [address] [place] [address] [place] Basophils (Bld) [#/Vol] 0.06 10*3/uL <0.11 k/uL [facility] Basophils/100 WBC (Bld) 0.7 % C [facility] Differential cell count method Nom (Bld) Auto [facility] Eosinophils (Bld) [#/Vol] 0.17 10*3/uL <0.46 k/uL [facility] Eosinophils/100 WBC (Bld) 2.0 % [facility] Erythrocyte distribution width (RBC) [Ratio] 12.9 % 11.5 - 15.0 % [facility] Hematocrit (Bld) [Volume fraction] 44.3 % 39.0 - 51.0 % [facility] Hemoglobin (Bld) [Mass/Vol] 14.8 g/dL 13.0 - 17.0 g/dL [facility] Immature granulocytes (Bld) [#/Vol] 0.06 10*3/uL <0.10 k/uL [facility] Immature granulocytes/100 WBC (Bld) 0.7 % [facility] Lymphocytes (Bld) [#/Vol] 1.17 10*3/uL 1.00 - 4.00 k/uL [facility] Lymphocytes/100 WBC (Bld) 14.1 % [facility] MCH (RBC) [Entitic mass] 31.1 pg 26.0 - 34.0 pg [facility] MCHC (RBC) [Mass/Vol] 33.4 g/dL 30.5 - 36.0 g/dL [facility] MCV (RBC) [Entitic vol] 93.1 fL 80.0 - 100.0 fL [facility] Monocytes (Bld) [#/Vol] 0.85 10*3/uL <0.87 k/uL [facility] Monocytes/100 WBC (Bld) 10.2 % C [facility] Neutrophils (Bld) [#/Vol] 6.00 10*3/uL 1.45 - 7.50 k/uL [facility] Neutrophils/100 WBC (Bld) 72.3 % [facility] Nucleated RBC (Bld) [#/Vol] <0.01 k/uL [facility] Nucleated RBC/100 WBC (Bld) [Ratio] 0.0 /100 WBC [facility] Platelet mean volume (Bld) [Entitic vol] 9.2 fL 9.0 - 12.7 fL [facility] Platelets (Bld) [#/Vol] 205 10*3/uL 150 - 400 k/uL [facility] RBC (Bld) [#/Vol] 4.76 10*6/uL 4.20 - 6.0 0 m/uL [facility] WBC (Bld) [#/Vol] 8.31 10*3/uL 3.70 - 11. 00 k/uL [facility] CNOVon 01-23-2023 CNOV Office Visit (OTMNCA ) HARIS PANIAGUA ([id number]) 1955 M Date Time Provider Department 01/23/23 10:50 AM AISHA LOPEZ During your visit today, we recorded the following information about you: Temperature Pulse Respiration Blood pressure 98.2 degrees 73/minute 18/minute 157/94 Weight 79.6 kg Aisha Lopez APRN.CNP 01/23/2023 12:26 PM Signed [facility] CC: throat pain Patient of Dr. 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 His previous ENT MD moved to [place] he has not been by ENT for 3 years. C/O a lot of phlegm and tongue and throat being sore and trouble breathing in the past 3 days. She has not noted shortness of breath. states he has been losing weight and looks more gaunt. Has been using Vicks vapo rub at night time to help his breathing Patient also C/O nerve pain in head and neck sharp pains at times. He has not PCP for a long while. Advised that a visit to ED may be prudent due to the harder time breathing. He has been refusing to go to local ED but he considering this today. Appt has been changed to see DR Tom on 02/06/23. Spouse is also going to call Oncology SOFTWARE SALES CONSULTANT Luz Hussein also for input reviewing his appt list there is no longer any appt with Dr Tom on 02/06/2023, he does have an appt with Dr Nolan on 02/12/2023 he feels worse in the morning where he can't get air in through his nose if he goes to bed he feels he can breath just fine he has not been having any issues with swallowing he does not do any rinses will complain of soreness in the back of his tongue , if he is working and breahtes through his tongue he will get sore on the first swallow if he is chewing gum if he cannot get to waterhe will get soreness in the back of the tongue feels he has more irritation if he wakes up at night and was breathing through his mouth he will have increased estuardo he has been using vicks to help with his breathing at night this weekend he was mowing and felt his naal passeges were tight after resting a while he felt a little better does not usually get bothered by seasonal allergies occasoinal fever/sweat not continuous smoking: No Last 2 Encounter Wt Readings: Date: Wt: 01/23/2023 79.6 kg (175 lb 6.4 oz) 05/28/2019 82.6 kg (182 lb) BP 157/94 (BP Site: Left Arm, BP Position: Sitting, BP Cuff Size: Large Adult) Pulse 73 Temp 36.8 ?C (98.2 ?F) (Temporal) Resp 18 Wt 79.6 kg (175 lb 6.4 oz) SpO2 99% BMI 29.19 kg/m? Current Outpatient Medications Medication Sig Dispense Refill POTASSIUM ORAL Take 1 tablet by mouth every other day. CALCIUM CARBONATE/VITAMIN D3 (CALCIUM + D ORAL) Take 1 capsule by mouth once daily. MULTIVITAMIN ORAL Take 1 tablet by mouth once daily. ASCORBIC ACID (VITAMIN C ORAL) Take 1 tablet by mouth once daily. losartan (COZAAR) 100 mg tablet Take 100 mg by mouth once daily. verapamil SR (CALAN SR, ISOPTIN SR) 120 mg CR tablet Take 1/2 tablet by mouth once daily. No current facility-administered medications for this visit. EXAM: Constitutional - General Appearance: well developed, well nourished, without obvious deformities Communication: speaks with a strong voice without hoarseness Head AND Face - Overall: no obvious scars, lesions or masses Parotid and submandibular glands: no masses or tenderness Facial strength: normal and equal bilaterally Ear, Nose, Mouth AND Throat - Ears: both left and right external auditory canals and TM's are normal, no external deformities Nasal exam: mucosa is pink, septum is without perforation, visible turbinates are normal on anterior rhinoscopy Mastication: teeth appear in poor condition Oral Cavity and oropharynx: mucosa, hard and soft palates, tongue, tonsil area, posterior pharyngeal wall, lips and gums are without lesions Neck:fibrosis to the right neck, appears symmetric, and on palpation is without masses or lymphadenopathy Thyroid: no asymmetry, thyromegaly, or thyroid nodules on palpation Neuro: CN III - CN XII grossly intact Procedure: Flexible laryngoscopy was performed because of the following indication: hx of tonsil ca , mirror exam limited by gag reflex. After spraying the nose with xylocaine/neosynephri ne, the flexible scope was placed in a transnasal fashion via bilateral nares. The nasopharynx is (more content not included)... Normal [facility] Comprehensive metabolic 2000 panelon 01-23-2023 Albumin [Mass/Vol] 4.7 g/dL Normal 3.9-4.9 [facility] Comment on above: Order Comment: Speci men Type: BLOOD SPECIMEN Ordering Facility: [facility] Address: [address] [place] [phone] Performed By: #### 2 4323-8 #### [facility] [id number] [address] [facility] [place] [address] [place] ALP [Catalytic activity/Vol] 74 U/L Normal 38-113 [facility] Comment on above: Order Comment: Speci men Type: BLOOD SPECIMEN Ordering Facility: [facility] Address: [address] Performed By: #### 2 4323-8 #### [facility] [id number] [address] [place] [address] ALT [Catalytic activity/Vol] 21 U/L Normal 10-54 [facility] Comment on above: Order Comment: Speci men Type: BLOOD SPECIMEN Ordering Facility: [facility] Address: [address] [place] [address] Performed By: #### 2 4323-8 #### [facility] [id number] [address] [place] [address] [place] Anion gap [Moles/Vol] 9 mmol/L Normal 9-18 [facility] Comment on above: Order Comment: Speci men Type: BLOOD SPECIMEN Ordering Facility: [facility] Address: [address] [place] [address] Performed By: #### 2 4323-8 #### [facility] [id number] [address] [place] [address] [place] AST [Catalytic activity/Vol] 17 U/L Normal 14-40 [facility] Comment on above: Order Comment: Speci men Type: BLOOD SPECIMEN Ordering Facility: [facility] Address: [address] Performed By: #### 2 4323-8 #### [facility] [id number] [address] [place] [address] [place] Bilirubin [Mass/Vol] 0.4 mg/dL Normal 0.2-1.3 [facility] Comment on above: Order Comment: Speci men Type: BLOOD SPECIMEN Ordering Facility: [facility] Address: [address] Performed By: #### 2 4323-8 #### [facility] [id number] [address] [place] [address] [place] Calcium [Mass/Vol] 9.4 mg/dL Normal 8.5-10.2 [facility] Comment on above: Order Comment: Speci men Type: BLOOD SPECIMEN Ordering Facility: [facility] Address: [address] [place] [address] Performed By: #### 2 4323-8 #### [facility] CLIA [id number] [address] [place] [address] [place] Chloride [Moles/Vol] 101 mmol/L Normal 97-105 [facility] Comment on above: Order Comment: Speci men Type: BLOOD SPECIMEN Ordering Facility: [facility] Address: [address] [place] [address] Performed By: #### 2 4323-8 #### [facility] [place] [id number] [address] [place] [address] [place] CO2 [Moles/Vol] 29 mmol/L Normal 22-30 [facility] Comment on above: Order Comment: Speci men Type: BLOOD SPECIMEN Ordering Facility: [facility] Address: [address] [place], [place] [address] Performed By: #### 2 4323-8 #### [facility] [place] [id number] [address] [place] [address] [place] Creatinine [Mass/Vol] 0.89 mg/dL Normal 0.73-1.22 [facility] Comment on above: Order Comment: Speci men Type: BLOOD SPECIMEN Ordering Facility: [facility] Address: [address] [place], [place] [address] Performed By: #### 2 4323-8 #### [facility] [id number] [address] [place] [address] [place] ESTIMATED GLOMERULAR FILTRATION RATE 95 mL/min/1.73m??? Normal >=60 [facility] Comment on above: Order Comment: Speci men Type: BLOOD SPECIMEN Ordering Facility: [facility] Address: [address] [place] [address] Result Comment: Mey mated Glomerular Filtration Rate (eGFR) is calculated using the 2020 CKD-EPI creatinine equation. This equation utilizes serum creatinine, sex, and age as parameters. The creatinine assay has traceable calibration to isotope dilution-mass spectrometry. Refer to KDIGO guidelines for clinical interpretation. In patients with unstable renal function, e.g. those with acute kidney injury, the eGFR may not accurately reflect actual GFR. Performed By: #### 2 4323-8 #### [facility] [id number] [address] [place] [address] [place] Glucose [Mass/Vol] 94 mg/dL Normal 74-99 [facility] Comment on above: Order Comment: Julissa blackwell Type: BLOOD SPECIMEN Ordering Facility: [facility] Address: [address] [place] [address] Result Comment: The [place] Diabetes Association (ADA) provides guidance for cutoff values for fasting glucose and random glucose. The ADA defines fasting as no caloric intake for at least 8 hours. Fasting plasma glucose results between 100 to 125 mg/dL indicate increased risk for diabetes (prediabetes). Fasting plasma glucose results greater than or equal to 126 mg/dL meet the criteria for diagnosis of diabetes. In the absence of unequivocal hyperglycemia, results should be confirmed by repeat testing. In a patient with classic symptoms of hyperglycemia or hyperglycemic crisis, random plasma glucose results greater than or equal to 200 mg/dL meet the criteria for diagnosis of diabetes. Reference: Standards of Medical Care in Diabetes 2016, [place] Diabetes Association. Diabetes Care. 2016.39(Suppl 1). Performed By: #### 2 4323-8 #### [facility] [id number] [address] [place] [address] [place] Potassium [Moles/Vol] 4.1 mmol/L Normal 3.7-5.1 [facility] Comment on above: Order Comment: Julissa blackwell Type: BLOOD SPECIMEN Ordering Facility: [facility] Address: [address] [place] [address] Performed By: #### 2 4323-8 #### [facility] [id number] [address] [place] [address] [place] Protein [Mass/Vol] 7.0 g/dL Normal 6.3-8.0 [facility] Comment on above: Order Comment: Speci men Type: BLOOD SPECIMEN Ordering Facility: [facility] Address: [address] [place] [address] Performed By: #### 2 4323-8 #### [facility] [id number] [address] [place] [address] [place] Sodium [Moles/Vol] 139 mmol/L Normal 136-144 [facility] Comment on above: Order Comment: Speci men Type: BLOOD SPECIMEN Ordering Facility: [facility] Address: [address] [place] [address] Performed By: #### 2 4323-8 #### [facility] [id number] [address] [place] [address] [place] Urea nitrogen [Mass/Vol] 16 mg/dL Normal 9-24 [facility] Comment on above: Order Comment: Speci men Type: BLOOD SPECIMEN Ordering Facility: [facility] Address: [address] [place] [address] Performed By: #### 2 4323-8 #### [facility] [id number] [address] [place] [address] [place] Albumin [Mass/Vol] 4.7 g/dL 3.9 - 4.9 g/dL [facility] ALP [Catalytic activity/Vol] 74 U/L 38 - 113 U/L [facility] ALT [Catalytic activity/Vol] 21 U/L 10 - 54 U/L [facility] Anion gap [Moles/Vol] 9 mmol/L 9 - 18 mmol/L [facility] AST [Catalytic activity/Vol] 17 U/L 14 - 40 U/L [facility] Bilirubin [Mass/Vol] 0.4 mg/dL 0.2 - 1 .3 mg/dL [facility] Calcium [Mass/Vol] 9.4 mg/dL 8.5 - 10. 2 mg/dL [facility] Chloride [Moles/Vol] 101 mmol/L 97 - 10 5 mmol/L [facility] CO2 [Moles/Vol] 29 mmol/L 22 - 30 mmol/L [facility] Creatinine [Mass/Vol] 0.89 mg/dL 0.73 - 1.22 mg/dL [facility] Estimated Glomerular Filtration Rate 95 mL/min/1.73m >=60 mL/min/1.73m [facility] Glucose [Mass/Vol] 94 mg/dL 74 - 99 mg/dL [facility] Potassium [Moles/Vol] 4.1 mmol/L 3.7 - 5.1 mmol/L [facility] Protein [Mass/Vol] 7.0 g/dL 6.3 - 8.0 g/dL [facility] Sodium [Moles/Vol] 139 mmol/L 136 - 144 mmol/L [facility] Urea nitrogen [Mass/Vol] 16 mg/dL 9 - 24 mg/dL [facility] TSH BLDon 01-23-2023 TSH Qn 4.050 m[IU]/L 0.270 - 4.200 mIU/L [facility] TSH SerPl-aCncon 01-23-2023 TSH Qn 4.050 m[IU]/L Normal 0.270-4.200 [facility] Comment on above: Order Comment: Speci men Type: BLOOD SPECIMEN Ordering Facility: [facility] Address: [address] [place] [address] Performed By: #### 3 016-3 #### [facility] CLIA [id number] [address] [place] [address] OF [facility] CNPNon 01-19-2023 CNPN Telephone (GENSME) HARIS PANIAGUA ([id number]) 1955 Date Time Provider Department 01/19/23 SHANNAN TOM During your visit today, we recorded the following information about you: Luli Sullivan RN 01/19/2023 2:16 PM Signed Patient call. Wants to get an earlier appt than 02/13/[address] Shannan Tom. Spouse C/O noting difficulty with his breathing H/O tonsil and tongue cancer a few years back. His previous ENT MD moved to [place] he has not been by ENT for 3 years. C/O a lot of phlegm and tongue and throat being sore and trouble breathing in the past 3 days. She has not noted shortness of breath. states he has been losing weight and looks more gaunt. Has been using Vicks vapo rub at night time to help his breathing Patient also C/O nerve pain in head and neck sharp pains at times. He has not PCP for a long while. Advised that a visit to ED may be prudent due to the harder time breathing. He has been refusing to go to local ED but he considering this today. Appt has been changed to see DR Tom on 02/06/23. Spouse is also going to call Oncology SOFTWARE SALES CONSULTANT Luz Hussein also for input. Romleia Alonso RN 01/19/2023 2:58 PM Signed Called and spoke with patient's in regards to phone call. Per patient's , patient's symptoms of coughing, throat pain, having breathing issues have not worsened but they have not improved. No chest pain or shortness of breath per patient's . Patient has upcoming appointment with Dr Tom on 02/06-reassured patient's that they will be contacted for a sooner appointment with a Head/Neck provider per Dr Tom's recommendations and appointment request was sent to the Head/Neck administrative assistants. Also relayed Dr Tom's recommendations that if pt's condition worsens or fails to improve, patient will need to be seen at the main campus emergency room for treatment d/t past history and symptoms. Patient's verbalized understanding of instructions. Romelia Alonso RN January 19, 2023 2:55 PM Allergies As of Date: 01/19/2023 Noted Allergy Reaction GLUTEN 03/23/2015 8 - GI Upset Comments: Upset stomach and diarrhea LACTOSE 03/23/2015 8 - GI Upset Comments: Upset stomach Date Reviewed: 05/28/2019 Reviewed by: Luz Hussein - Fully Assessed Reason for Visit: Future Appointment [256] Prescriptions as of 01/19/2023 - POTASSIUM ORAL Take 1 tablet by mouth every other day. - CALCIUM CARBONATE/VITAMIN D3 (CALCIUM + D ORAL) Take 1 capsule by mouth once daily. - MULTIVITAMIN ORAL Take 1 tablet by mouth once daily. - ASCORBIC ACID (VITAMIN C ORAL) Take 1 tablet by mouth once daily. - losartan (COZAAR) 100 mg tablet Take 100 mg by mouth once daily. - verapamil SR (CALAN SR, ISOPTIN SR) 120 mg CR tablet Take 1/2 tablet by mouth once daily. 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 Comment on above: Performed By: #### 2 [id number] #### [facility],[address] [place] [address] Albumin/Globulin [Mass ratio] 2.2 {ratio} High 0.9 - 1.6 [facility] Comment on above: Performed By: #### 2 [id number] #### [facility],[address] [place] [address] ALK PHOS 50 U/L Normal 38 - 126 U/L [facility]. Comment on above: Performed By: #### 2 [id number] #### [facility],[address] [place] [address] ALT/SGPT 26 U/L Normal 10 - 40 [facility] Comment on above: Performed By: #### 2 [id number] #### [facility],[address] [place] [address] Anion gap [Moles/Vol] 15 mmol/L Normal 10 - 2 0 mmol/L [facility] Comment on above: Performed By: #### 2 [id number] #### [facility],[address] [place] [address] AST/SGOT 19 U/L Normal 13 - 39 [facility] Comment on above: Performed By: #### 2 31615 #### [place] [address] B/C RATIO 20 ratio Normal 0 - 30 [facility] Comment on above: Performed By: #### 2 75868 #### [facility],[address] [place] [address] Bilirubin [Mass/Vol] 0.4 mg/dL Normal 0.0 - 1 .5 mg/dL [facility] Comment on above: Performed By: #### 2 [id number] #### [facility],[address] [place] [address] Calcium [Mass/Vol] 9.8 mg/dL Normal 8.6 - 10. 2 mg/dL [facility] Comment on above: Performed By: #### 2 34419 #### [facility],[address] [place] [address] Chloride [Moles/Vol] 103 mmol/L Normal 98 - 10 7 mmol/L [facility] Comment on above: Performed By: #### 2 84999 #### [facility],[address] [place] [address] CO2 [Moles/Vol] 24.9 mmol/L Normal 21.0 - 31.0 mmol/L [facility]. Comment on above: Performed By: #### 2 53514 #### [address] [address] Creatinine [Mass/Vol] 1.1 mg/dL Normal 0.7 - 1.3 mg/dL [facility].; [facility], [facility]. Comment on above: Performed By: #### 2 87300 #### [address] [address] GFR/1.73 sq M predicted among non-blacks MDRD (S/P/Bld) [Vol rate/Area] mL/min/{1.73_m2} Normal 60 - 999 [facility] Comment on above: Result Comment: ACCO RDING TO THE NATIONAL KIDNEY DISEASE EDUCATION PROGRAM(NKDE), A NORMAL eGFR IS A VALUE GREATER THAN OR EQUAL TO 60 ML/MIN/1.73 SQ METERS. CHRONIC KIDNEY DISEASE: <60mL/MIN/1.73 SQ METERS KIDNEY FAILURE: <15mL/MIN/1.73 SQ METERS THIS TEST SHOULD ONLY BE USED FOR PATIENTS 18 YEARS OF AGE AND OLDER. Performed By: #### 2 32877 #### [address] [address] GFR/1.73 sq M predicted among non-blacks MDRD (S/P/Bld) [Vol rate/Area] Normal [facility] Comment on above: Result Comment: COMP REHENSIVE METABOLIC PANEL Performed By: #### 2 39111 #### [address] [address] Globulin (S) [Mass/Vol] 2.1 g/dL Normal 1.5 - 3.8 g/dL [facility], [facility]. Comment on above: Performed By: #### 2 00209 #### [place] [id number] Glucose [Mass/Vol] 119 mg/dL Abnormal 74 - 106 mg/dL [facility] Comment on above: Performed By: #### 2 77420 #### [place] [address] Potassium [Moles/Vol] 4.3 mmol/L Normal 3.5 - 5.1 mmol/L [facility], [facility].; [facility] Comment on above: Performed By: #### 2 93097 #### [place] [address] Protein [Mass/Vol] 6.7 g/dL Normal 6.4 - 8.3 g/dL [facility] Comment on above: Performed By: #### 2 26248 #### [address] [address] Sodium [Moles/Vol] 139 mmol/L Normal 136 - 145 mmol/L [facility], [facility].; [facility] Comment on above: Performed By: #### 2 07299 #### [place] [id number] Urea nitrogen [Mass/Vol] 22 mg/dL Abnormal 6 - 20 mg/dL [facility] Comment on above: Performed By: #### 2 27175 #### [place] [id number] LIPID PROFILEon 08-07-2019 Cholesterol [Mass/Vol] 232 mg/dL Abnormal 0 - 200 mg/dL [facility] Comment on above: Performed By: #### 2 86464 #### [facility],[address] [place] [address] Cholesterol in HDL [Mass/Vol] 59 mg/dL Normal 40 - 60 [facility] Comment on above: Performed By: #### 2 07895 #### [facility],[address] [place] [address] Cholesterol in LDL [Mass/Vol] 135 mg/dL Abnormal 0 - 129 mg/dL [facility], [facility].; [facility] Comment on above: Performed By: #### 2 94588 #### [facility],[address] [place] [address] Cholesterol.total/Blanca sterol in HDL [Mass ratio] 3.9 {ratio} Normal 0.0 - 5.0 [facility], [facility].; [facility], [facility]. Comment on above: Performed By: #### 2 [id number] #### [facility],[address] [place] [address] Lipid 1996 panel Normal [facility] Comment on above: Result Comment: LIPI D PROFILE Performed By: #### 2 [id number] #### [facility],[address] [place] [address] Triglyceride [Mass/Vol] 189 mg/dL Abnormal 0 - 150 mg/d L [facility], [facility].; [facility] Comment on above: Performed By: #### 2 94665 #### [facility],[address] [place], [place] [id number] Laboratory - Chemistry and C hemistry - challengeon 08-06-2019 Albumin [Mass/Vol] 2.2 g/dL Abnormal 0.9 - 1.6 [facility] ALT [Catalytic activity/Vol] 26 U/L Normal 10 - 40 U/L [facility], [facility].; [facility] AST [Catalytic activity/Vol] 19 U/L Normal 13 - 39 U/L [facility].; [facility], [facility] Cholesterol in HDL [Mass or moles/Vol] 59 mg/dL Normal 40 - 60 mg/dL [facility], [facility]. GFR/1.73 sq M.predicted among blacks MDRD (S/P/Bld) [Vol rate/Area] mL/min/{1.73_m2} Normal 60 - 999 {ML/MINUTE} [facility].; [facility], [facility] GFR/1.73 sq M.predicted MDRD (S/P/Bld) [Vol rate/Area] mL/min/{1.73_m2} Normal 60 - 999 {ML/MINUTE} [facility].; [facility], [facility]. Lipid 1996 panel Normal [facility].; [facility], [facility] Urea nitrogen/Creatinine [Mass ratio] 20 {ratio} Normal 0 - 30 {ratio} [facility].; [facility] No Panel Informationon 08-06 AGE 64 {years} Normal [facility]; [facility] CMP with eGFR Normal [facility]; [facility] Laboratory - Chemistry and C hemistry - challengeon 06-18-2017 Albumin [Mass/Vol] 2.0 g/dL Abnormal 0.9 - 1.6 [facility]; [facility], [facility] Albumin [Mass/Vol] 4.3 g/dL Normal 3.4 - 4.8 g/dL [facility], [facility]. ALT [Catalytic activity/Vol] 24 U/L Normal 10 - 40 U/L [facility].; [facility], [facility]. Anion gap [Moles/Vol] 14 mmol/L Normal 10 - 2 0 mmol/L [facility].; [facility], [facility]. AST [Catalytic activity/Vol] 15 U/L Normal 13 - 39 U/L [facility]; [facility] Bilirubin [Mass/Vol] 0.5 mg/dL Normal 0.0 - 1 .5 mg/dL [facility]; [facility] Calcium [Mass/Vol] 9.1 mg/dL Normal 8.6 - 10. 2 mg/dL [facility]; [facility] Chloride [Moles/Vol] 101 mmol/L Normal 98 - 10 7 mmol/L [facility]; [facility] Cholesterol [Mass/Vol] 224 mg/dL Abnormal 0 - 200 mg/dL [facility]; [facility] Cholesterol in HDL [Mass or moles/Vol] 61 mg/dL Abnormal 40 - 60 mg/dL [facility]; [facility] Cholesterol in LDL [Mass/Vol] 145 mg/dL Abnormal 0 - 129 mg/dL [facility]; [facility] Cholesterol.total/Blanca sterol in HDL [Mass ratio] 3.7 {ratio} Normal 0.0 - 5.0 [facility]; [facility] CO2 [Moles/Vol] 28.7 mmol/L Normal 21.0 - 31.0 mmol/L [facility]; [facility] Creatinine [Mass/Vol] 0.9 mg/dL Normal 0.7 - 1.3 mg/dL [facility]; [facility]. GFR/1.73 sq M.predicted among blacks MDRD (S/P/Bld) [Vol rate/Area] mL/min/{1.73_m2} Normal 60 - 999 {ML/MINUTE} [facility].; [facility] GFR/1.73 sq M.predicted MDRD (S/P/Bld) [Vol rate/Area] mL/min/{1.73_m2} Normal 60 - 999 {ML/MINUTE} [facility].; [facility], [facility] Globulin (S) [Mass/Vol] 2.1 g/dL Normal 1.5 - 3.8 g/dL [facility]; [facility], [facility] Glucose [Mass/Vol] 84 mg/dL Normal 74 - 106 mg/dL [facility], [facility] Lipid 1996 panel Normal [facility]; [facility], [facility] Potassium [Moles/Vol] 4.0 mmol/L Normal 3.5 - 5.1 mmol/L [facility]; [facility], [facility] Protein [Mass/Vol] 6.4 g/dL Normal 6.4 - 8.3 g/dL [facility]; [facility], [facility] Sodium [Moles/Vol] 140 mmol/L Normal 136 - 145 mmol/L [facility]; [facility], [facility] Triglyceride [Mass/Vol] 92 mg/dL Normal 0 - 150 mg/d L [facility]; [facility], [facility] Urea nitrogen [Mass/Vol] 18 mg/dL Normal 6 - 20 mg/dL [facility]; [facility], [facility] Urea nitrogen/Creatinine [Mass ratio] 20 {ratio} Normal 0 - 30 {ratio} [facility]; [facility], [facility] No Panel Informationon 06-18 AGE 62 {years} Normal [facility]; [facility], [facility] ALK PHOS 55 U/L Normal 38 - 126 U/L [facility]; [facility], [facility] CMP with eGFR Normal [facility]; [facility], [facility] Laboratory - Chemistry and C hemistry - challengeon 04-06-2016 Anion gap [Moles/Vol] 14 mmol/L Normal 10 - 2 0 mmol/L [facility]; [facility] Calcium [Mass/Vol] 9.4 mg/dL Normal 8.6 - 10. 2 mg/dL [facility]; [facility] Chloride [Moles/Vol] 101 mmol/L Normal 98 - 10 7 mmol/L [facility]; [facility] Cholesterol [Mass/Vol] 223 mg/dL Abnormal 0 - 200 mg/dL [facility]; [facility] Cholesterol in HDL [Mass or moles/Vol] 56 mg/dL Normal 40 - 60 mg/dL [facility]; [facility] Cholesterol in LDL [Mass/Vol] 137 mg/dL Abnormal 0 - 129 mg/dL [facility]; [facility] Cholesterol.total/Blanca sterol in HDL [Mass ratio] 4.0 {ratio} Normal 0.0 - 5.0 [facility]; [facility] CO2 [Moles/Vol] 27.0 mmol/L Normal 21.0 - 31.0 mmol/L [facility]; [facility] Creatinine [Mass/Vol] 0.9 mg/dL Normal 0.7 - 1.3 mg/dL [facility]; [facility], [facility]. GFR/1.73 sq M.predicted among blacks MDRD (S/P/Bld) [Vol rate/Area] mL/min/{1.73_m2} Normal 60 - 999 {ML/MINUTE} [facility].; [facility], [facility]. GFR/1.73 sq M.predicted MDRD (S/P/Bld) [Vol rate/Area] mL/min/{1.73_m2} Normal 60 - 999 {ML/MINUTE} [facility].; [facility], [facility] Glucose [Mass/Vol] 134 mg/dL Abnormal 74 - 106 mg/dL [facility].; [facility], [facility] Lipid 1996 panel Normal [facility]; [facility], [facility] Potassium [Moles/Vol] 3.7 mmol/L Normal 3.5 - 5.1 mmol/L [facility]; [facility], [facility] Sodium [Moles/Vol] 138 mmol/L Normal 136 - 145 mmol/L [facility]; [facility] Triglyceride [Mass/Vol] 149 mg/dL Normal 0 - 150 mg/d L [facility]; [facility] Urea nitrogen [Mass/Vol] 18 mg/dL Normal 6 - 20 mg/dL [facility]; [facility] No Panel Informationon 04-06 AGE 60 {years} Normal [facility]; [facility] BMP with eGFR Normal [facility]; [facility] Laboratory - Chemistry and C hemistry - challengeon 04-10-2014 Cholesterol in LDL [Mass/Vol] 114 mg/dL Normal 50.0 - 190.0 mg/dL [facility]; [facility], [facility]. Laboratory - Chemistry and C hemistry - challengeon 03-12-2012 Albumin BCP dye [Mass/Vol] 4.3 g/dL Normal 3.2 - 4.8 g/dL [facility]; [facility], [facility] Albumin/Globulin [Mass ratio] 1.7 {ratio} Abnormal 0.9 - 1.6 [facility]; [facility], [facility] ALP [Catalytic activity/Vol] 53 U/L Normal 38 - 126 U/L [facility]; [facility], [facility] ALT With P-5'-P [Catalytic activity/Vol] 45 U/L Normal 12 - 55 U/L [facility]; [facility], [facility] AST With P-5'-P [Catalytic activity/Vol] 23 U/L Normal 8 - 34 U/L [facility].; [facility]. Bilirubin [Mass/Vol] 0.5 mg/dL Normal 0.2 - 1 .2 mg/dL [facility].; [facility], [facility] Calcium [Mass/Vol] 9.1 mg/dL Normal 8.4 - 10. 1 mg/dL [facility].; [facility] Chloride [Moles/Vol] 105 mmol/L Normal 98 - 11 0 meq/L [facility].; [facility] Cholesterol [Mass/Vol] 220 mg/dL Abnormal 50 - 199 mg/dL [facility]; [facility]. Cholesterol in HDL [Mass/Vol] 59 mg/dL Normal 40 - 59 mg/dL [facility].; [facility] Cholesterol in LDL [Mass/Vol] 134 mg/dL Abnormal 0 - 129 mg/dL [facility].; [facility]. Cholesterol in VLDL [Mass/Vol] 27 mg/dL Normal [facility].; [facility], [facility]. CO2 [Moles/Vol] 28 mmol/L Normal 22 - 32 meq/L [facility], [facility] Creatinine [Mass/Vol] 0.85 mg/dL Normal 0.60 - 1.40 mg/dL [facility].; [facility], [facility]. GFR/1.73 sq M.predicted among blacks MDRD (S/P/Bld) [Vol rate/Area] mL/min/{1.73_m2} Normal [facility].; [facility], [facility]. Work Phone: GFR/1.73 sq M.predicted among non-blacks MDRD (S/P/Bld) [Vol rate/Area] mL/min/{1.73_m2} Normal [facility].; [facility], [facility] Work Phone: Globulin (S) [Mass/Vol] 2.5 g/dL Normal 1.5 - 3.8 g/dL [facility]; [facility] Glucose [Mass/Vol] 83 mg/dL Normal 70 - 110 mg/dL [facility]; [facility] Potassium [Moles/Vol] 4.1 mmol/L Normal 3.5 - 5.0 meq/L [facility]; [facility] Prostate specific Ag [Mass/Vol] 0.73 ng/mL Normal 0.02 - 4.00 ng/mL [facility]; [facility] Protein [Mass/Vol] 6.8 g/dL Normal 6.0 - 8.5 g/dL [facility]; [facility], [facility] Sodium [Moles/Vol] 143 mmol/L Normal 136 - 145 meq/L [facility].; [facility], [facility] Triglyceride [Mass/Vol] 137 mg/dL Normal 3 - 149 mg/d L [facility]; [facility], [facility] Urea nitrogen [Mass/Vol] 17.0 mg/dL Normal 8.0 - 22.0 mg/dL [facility]; [facility], [facility] Urea nitrogen/Creatinine [Mass ratio] 20.0 mg/mg Normal 10.0 - 22.0 [facility]; [facility], [facility] Laboratory - Hematology and Cell countson 03-12-2012 HbA1c (Bld) [Mass fraction] 5.4 % Normal 4.0 - 6.0 % [facility]; [facility], [facility] No Panel Informationon 03-12 Electrolyte Balance 10.0 meq/L Normal 4.0 - 15 .0 meq/L [facility]; [facility], [facility] Vital Signs Date Time Vital Sign Value Performing Clinician Danette perdomo 12-15-2024 07:53-0400 Body height 167.64 cm Lucrecia Montoya STORE RECEIVING SPECIALIST-C Work Phone: [facility] 12-15-2024 07:53-0400 Body mass index (BMI) [Ratio] 28.8 kg/m2 Lucrecia Montoya STORE RECEIVING SPECIALIST-C Work Phone: [facility] 12-15-2024 07:53-0400 Body weight 81.19 kg Lucrecia Montoya STORE RECEIVING SPECIALIST-C Work Phone: [facility] 12-15-2024 07:53-0400 Diastolic blood pressure 90 mm[Hg] Lucrecia Montoya STORE RECEIVING SPECIALIST-C Work Phone: [facility] 12-15-2024 07:53-0400 Heart rate 74 /min Lucrecia Montoya STORE RECEIVING SPECIALIST-C Work Phone: [facility] 12-15-2024 07:53-0400 SaO2% (BldA) [Mass fraction] 96 % Lucrecia Montoya STORE RECEIVING SPECIALIST-C Work Phone: [facility] 12-15-2024 07:53-0400 Systolic blood pressure 144 mm[Hg] Lucrecia Montoya STORE RECEIVING SPECIALIST-C Work Phone: [facility] 08-05-2024 09:09-0500 Body height 165.1 cm [facility]lyson [facility]ray RN [facility] [place], [facility]. 08-05-2024 09:09-0500 Body mass index (BMI) [Ratio] 29.62 kg/m2 Alyson Bray RN [facility].; [facility]. 08-05-2024 09:09-0500 Body surface area Derived from formula 1.88 m2 Alyson Bray RN [facility].; [facility]. 08-05-2024 09:09-0500 Body weight 80.74 kg Alyson Bray RN [facility].; [facility]. 08-05-2024 09:09-0500 Diastolic blood pressure 93 mm[Hg] Alyson Bray RN [facility] [place], [facility]. Comment on above: Patient Position: Sitting; Cuff Location : Left Arm; Cuff Size: Large 08-05-2024 09:09-0500 Heart rate 74 /min Alyson Bray RN [facility], [facility] Comment on above: Pattern: Regular 08-05-2024 09:09-0500 Inhaled oxygen concentration 21 % Alyson Bray RN [facility] Comment on above: Room air 08-05-2024 09:09-0500 SaO2% (BldA) [Mass fraction] 98 % Alyson Bray RN [facility], [facility] 08-05-2024 09:09-0500 Systolic blood pressure 151 mm[Hg] Alyson Bray RN [facility], [facility] [employer] Comment on above: Patient Position: Sitting; Cuff Location : Left Arm; Cuff Size: Large 06-28-2023 13:30-0500 Body height 165.1 cm Tessy Zuñiga RN [facility], [facility].; [facility] 06-28-2023 13:30-0500 Body mass index (BMI) [Ratio] 29.18 kg/m2 Tessy Zuñiga RN [facility] 06-28-2023 13:30-0500 Body surface area Derived from formula 1.87 m2 Tessy Zuñiga RN [facility], [facility].; [facility] 06-28-2023 13:30-0500 Body temperature 97.9 [degF] Tessy Zuñiga RN [facility], [facility].; [facility] [employer] [facility] Comment on above: Method: Oral 06-28-2023 13:30-0500 Body weight 79.55 kg Tessy Zuñiga RN [facility] 06-28-2023 13:30-0500 Diastolic blood pressure 85 mm[Hg] Tessy Zuñiga RN [facility] Comment on above: Patient Position: Sitting; Cuff Location : Left Arm; Cuff Size: Large 06-28-2023 13:30-0500 Heart rate 77 /min Tessy Zuñiga RN [facility] Comment on above: Pattern: Regular 06-28-2023 13:30-0500 Systolic blood pressure 117 mm[Hg] Tessy Zuñiga RN [facility], [facility].; [facility], [facility]. Comment on above: Patient Position: Sitting; Cuff Location : Left Arm; Cuff Size: Large 01-23-2023 10:58-0400 Body temperature 98.2 [degF] Aisha Levnert LAW FIRM ADMINISTRATOR.SOFTWARE SALES CONSULTANT Work Phone: [facility] 01-23-2023 10:58-0400 Body weight 79.56 kg Aisha Levnert LAW FIRM ADMINISTRATOR.SOFTWARE SALES CONSULTANT Work Phone: [facility] 01-23-2023 10:58-0400 Diastolic blood pressure 94 mm[Hg] Aisha Levnert LAW FIRM ADMINISTRATOR.SOFTWARE SALES CONSULTANT Work Phone: [facility] 01-23-2023 10:58-0400 Heart rate 73 /min Aisha Levnert LAW FIRM ADMINISTRATOR.SOFTWARE SALES CONSULTANT Work Phone: [facility] 01-23-2023 10:58-0400 Respiratory rate 18 /min Aisha Levnert LAW FIRM ADMINISTRATOR.SOFTWARE SALES CONSULTANT Work Phone: [facility] 01-23-2023 10:58-0400 SaO2% (BldA) [Mass fraction] 99 % Aisha Levnert LAW FIRM ADMINISTRATOR.SOFTWARE SALES CONSULTANT Work Phone: [facility] 01-23-2023 10:58-0400 Systolic blood pressure 157 mm[Hg] Aisha Kahnert LAW FIRM ADMINISTRATOR.SOFTWARE SALES CONSULTANT Work Phone: [facility] 10-16-2022 13:46-0400 Body height 165.1 cm Myla Pereyra RN [facility], [facility]. 10-16-2022 13:46-0400 Body mass index (BMI) [Ratio] 29.62 kg/m2 Myla Pereyra RN [facility] 10-16-2022 13:46-0400 Body surface area Derived from formula 1.88 m2 Myla Pererya RN [facility] 10-16-2022 13:46-0400 Body weight 80.74 kg Myla Pereyra RN [facility] 10-16-2022 13:46-0400 Diastolic blood pressure 87 mm[Hg] Myla Pereyra RN [facility] Comment on above: Patient Position: Sitting; Cuff Location : Left Arm; Cuff Size: Standard 10-16-2022 13:46-0400 Heart rate 71 /min Myla Pereyra RN [facility] Comment on above: Pattern: Regular 10-16-2022 13:46-0400 Systolic blood pressure 151 mm[Hg] Myla Pereyra RN [facility], [facility] Comment on above: Patient Position: Sitting; Cuff Location : Left Arm; Cuff Size: Standard 09-29-2021 13:58-0400 Body height 165.1 cm Alyson Bray RN [facility] 09-29-2021 13:58-0400 Body mass index (BMI) [Ratio] 30.12 kg/m2 Alyson Bray RN [facility] 09-29-2021 13:58-0400 Body surface area Derived from formula 1.9 m2 Alyson Bray RN [facility] 09-29-2021 13:58-0400 Body temperature 97.8 [degF] Alyson Bray RN [facility], [facility] [employer] [facility] [employer] Comment on above: Method: Oral 09-29-2021 13:58-0400 Body weight 82.1 kg Alyson Bray RN [facility], [employer] [facility] 09-29-2021 13:58-0400 Diastolic blood pressure 90 mm[Hg] Alyson Bray RN [facility] [employer] [facility] [employer] Comment on above: Patient Position: Sitting; Cuff Location : Left Arm; Cuff Size: Large 09-29-2021 13:58-0400 Heart rate 79 /min Alyson Bray RN [facility] [employer] [facility] [employer] Comment on above: Pattern: Regular 09-29-2021 13:58-0400 Systolic blood pressure 148 mm[Hg] Alyson Bray RN [facility], [facility] [employer] [facility] [employer] Comment on above: Patient Position: Sitting; Cuff Location : Left Arm; Cuff Size: Large 09-20-2020 09:05-0500 Body height 165.1 cm Alyson Bray RN [facility] 09-20-2020 09:05-0500 Body mass index (BMI) [Ratio] 30.82 kg/m2 Alyson Bray RN [facility] 09-20-2020 09:05-0500 Body surface area Derived from formula 1.91 m2 Alyson Bray RN [facility] 09-20-2020 09:05-0500 Body weight 84.01 kg Alyson Bray RN [facility], [employer] [facility] [employer] [facility] [employer] 09-20-2020 09:05-0500 Diastolic blood pressure 91 mm[Hg] Alyson Bray RN [facility] [employer] [facility], [employer]. Comment on above: Patient Position: Sitting; Cuff Location : Left Arm; Cuff Size: Large 09-20-2020 09:05-0500 Heart rate 75 /min Alyson Bray RN [facility] [employer] [facility], [facility] [employer] [facility] [employer] Comment on above: Pattern: Regular 09-20-2020 09:05-0500 Systolic blood pressure 146 mm[Hg] Alyson Bray RN [facility] [employer] [facility] [employer] Comment on above: Patient Position: Sitting; Cuff Location : Left Arm; Cuff Size: Large 08-05-2019 13:21-0500 Body height 165.1 cm Myla Pereyra RN [facility] [employer] [facility], [facility].; [facility] [employer] [facility] [employer] 08-05-2019 13:21-0500 Body mass index (BMI) [Ratio] 30.62 kg/m2 Myla Pereyra RN [facility] [employer] [facility], [facility].; [facility] [employer] [facility] [employer] 08-05-2019 13:21-0500 Body surface area Derived from formula 1.91 m2 Myla Pereyra RN [facility] [employer] [facility], [facility].; [facility] [employer] [facility] [employer] 08-05-2019 13:21-0500 Body temperature 98.1 [degF] Myla Pereyra RN [facility] [employer] [facility], [employer] [facility] [employer] [facility] [employer] Comment on above: Method: Oral 08-05-2019 13:21-0500 Body weight 83.46 kg Myla Pereyra RN [facility] [employer] [facility], [facility].; [facility] [employer] [facility] [employer] 08-05-2019 13:21-0500 Diastolic blood pressure 88 mm[Hg] Myla Pereyra RN [facility] [employer] [facility], [facility].; [facility] [employer] [facility] [employer] Comment on above: Patient Position: Sitting; Cuff Location : Left Arm; Cuff Size: Standard 08-05-2019 13:21-0500 Heart rate 75 /min Myla Pereyra RN [facility] [employer] [facility], [facility].; [facility] [employer] Comment on above: Pattern: Regular 08-05-2019 13:21-0500 Systolic blood pressure 136 mm[Hg] Myla Pereyra RN [facility] [employer] [facility], [facility].; [facility] [employer] [facility] [employer] Comment on above: Patient Position: Sitting; Cuff Location : Left Arm; Cuff Size: Standard 07-04-2018 09:19-0500 Body height 165.1 cm Alyson Bray RN [facility] 07-04-2018 09:19-0500 Body mass index (BMI) [Ratio] 29.79 kg/m2 Alyson Bray RN [facility], [facility] [employer] [facility] 07-04-2018 09:19-0500 Body surface area Derived from formula 1.89 m2 Alyson Bray RN [facility], [facility] [employer] [facility] [employer] [facility] [employer] 07-04-2018 09:19-0500 Body weight 81.19 kg Alyson Bray RN [facility] [employer] [facility] [employer] 07-04-2018 09:19-0500 Diastolic blood pressure 84 mm[Hg] Alyson Bray RN [facility] [employer] [facility], [facility].; [employer] [facility] [employer] [facility], [employer] Comment on above: Patient Position: Sitting; Cuff Location : Left Arm; Cuff Size: Large 07-04-2018 09:19-0500 Heart rate 71 /min Alyson Bray RN [facility] [employer] [facility], [facility].; [facility] [employer] [facility], [employer] Comment on above: Pattern: Regular 07-04-2018 09:19-0500 Systolic blood pressure 130 mm[Hg] Alyson Bray RN [facility] [employer] [facility], [facility].; [employer] [facility] [employer] [facility] [employer] Comment on above: Patient Position: Sitting; Cuff Location : Left Arm; Cuff Size: Large 06-18-2017 09:20-0500 Body height 165.1 cm Myla Pereyra RN [facility] [employer] [facility], [facility].; [employer] [facility] [employer] [facility] [employer] 06-18-2017 09:20-0500 Body mass index (BMI) [Ratio] 30.25 kg/m2 Myla Pereyra RN [facility] [employer] [facility] [employer] [facility] [employer] 06-18-2017 09:20-0500 Body surface area Derived from formula 1.9 m2 Myla Pereyra RN [facility], [facility] [employer] [facility] [employer] 06-18-2017 09:20-0500 Body temperature 97.7 [degF] Myla Pereyra RN [facility] [employer] [facility], [employer] Comment on above: Method: Oral 06-18-2017 09:20-0500 Body weight 82.46 kg Myla Pereyra RN [facility] [employer] [facility], [facility].; [employer] [facility] [employer] 06-18-2017 09:20-0500 Diastolic blood pressure 86 mm[Hg] Myla Pereyra RN [facility] [employer] [facility], [facility].; [employer] Comment on above: Patient Position: Sitting; Cuff Location : Left Arm; Cuff Size: Standard 06-18-2017 09:20-0500 Heart rate 66 /min Myla Pereyra RN [facility] [employer] [facility], [facility].; [employer] Comment on above: Pattern: Regular 06-18-2017 09:20-0500 Systolic blood pressure 134 mm[Hg] Myla Pereyra RN [facility] [employer] [facility], [facility].; [employer] Comment on above: Patient Position: Sitting; Cuff Location : Left Arm; Cuff Size: Standard 12-07-2016 11:130400 Body height 165.1 cm Tessy Zuñiga RN [facility] [employer] [facility], [facility].; [employer] [facility] [employer] [facility] [employer] 12-07-2016 11:13-0400 Body mass index (BMI) [Ratio] 30.45 kg/m2 Tessy Zuñiga RN [facility] [employer] [facility], [employer].; [employer] [facility] [employer] [facility] [employer] 12-07-2016 11:130400 Body surface area Derived from formula 1.9 m2 Tessy Zuñiga RN [facility] [employer] [facility], [employer].; [employer] [facility] [employer] 12-07-2016 11:130400 Body weight 83.01 kg Tessy Zuñiga RN [facility] [employer] [facility], [employer].; [employer] [facility] [employer] 12-07-2016 11:13-0400 Diastolic blood pressure 95 mm[Hg] Tessy Zuñiga RN [facility] [employer] [facility], [employer].; [employer] Comment on above: Patient Position: Sitting; Cuff Location : Left Arm; Cuff Size: Large 12-07-2016 11:13-0400 Heart rate 60 /min Tessy Zuñiga RN [employer] [facility] [employer]. Comment on above: Pattern: Regular 12-07-2016 11:13-0400 Systolic blood pressure 132 mm[Hg] Tessy Zuñiga RN [employer] [facility] [employer] Comment on above: Patient Position: Sitting; Cuff Location : Left Arm; Cuff Size: Large 04-10-2016 09:070400 Body height 156.21 cm IRMA GREEN MD Work Phone: [employer] [facility] [employer] [facility] [employer]. 04-10-2016 09:07-0400 Body mass index (BMI) [Ratio] 21.04 kg/m2 IRMA GREEN MD Work Phone: [employer] [facility] [place]. 04-10-2016 09:07-0400 Body surface area Derived from formula 1.49 m2 IRMA GREEN MD Work Phone: [employer] [facility] [place]. 04-10-2016 09:070400 Body weight 51.35 kg IRMA GREEN MD Work Phone: [employer] [facility] [employer] 04-06-2016 13:080400 Body height 166.37 cm Tessy Zuñiga RN [facility] [employer] [facility] [employer]. 04-06-2016 13:08-0400 Body mass index (BMI) [Ratio] 31.17 kg/m2 Tessy Zuñiga RN [employer] [facility] [employer] 04-06-2016 13:08-0400 Body surface area Derived from formula 1.95 m2 Tessy Zuñiga RN [employer] [facility] [place]. 04-06-2016 13:08-0400 Body temperature 98 [degF] Tessy [place] [facility] [employer] [facility] [employer] Comment on above: Method: Oral 04-06-2016 13:08-0400 Body weight 86.27 kg Tessy Zuñiga RN [facility] [employer] [facility], [employer].; [employer] [facility] [employer] [facility] [employer] 04-06-2016 13:08-0400 Diastolic blood pressure 82 mm[Hg] Tessy Zuñiga RN [facility] [employer] [facility], [employer].; [employer] [facility], [employer] Comment on above: Patient Position: Sitting; Cuff Location : Left Arm; Cuff Size: Large 04-06-2016 13:08-0400 Heart rate 87 /min Tessy Zuñiga RN [facility] [employer] [facility], [employer] [facility] [employer], [employer]. Comment on above: Pattern: Regular 04-06-2016 13:08-0400 Systolic blood pressure 122 mm[Hg] Tessy Zuñiga RN [facility] [employer] [facility], [employer].; [employer] Comment on above: Patient Position: Sitting; Cuff Location : Left Arm; Cuff Size: Large 10-18-2015 10:30-0400 Body height 165.1 cm Tessy Zuñiga RN [facility] [employer] [facility], [employer].; [employer] [facility] [employer] [facility] [employer] 10-18-2015 10:30-0400 Body mass index (BMI) [Ratio] 30.95 kg/m2 Tessy Zuñiga RN [facility] [employer] [facility], [employer].; [employer] [facility] [employer] [facility] [employer] 10-18-2015 10:30-0400 Body surface area Derived from formula 1.92 m2 Tessy Zuñiga RN [facility] [employer] [facility], [employer].; [employer] [facility] [employer] [facility] [employer] 10-18-2015 10:30-0400 Body weight 84.37 kg Tessy Zuñiga RN [facility] [employer] [facility], [employer].; [employer] [facility] [employer] 10-18-2015 10:30-0400 Diastolic blood pressure 87 mm[Hg] Tessy Zuñiga RN [facility] [employer] [facility], [facility].; [employer] Comment on above: Patient Position: Sitting; Cuff Location : Left Arm; Cuff Size: Large 10-18-2015 10:30-0400 Heart rate 71 /min Tessy Zuñiga RN [facility], [employer] [facility] [employer] [facility] [employer] Comment on above: Pattern: Regular 10-18-2015 10:30-0400 Systolic blood pressure 142 mm[Hg] Tessy Zuñiga RN [facility] [employer] [facility] [employer] Comment on above: Patient Position: Sitting; Cuff Location : Left Arm; Cuff Size: Large 08-17-2015 09:07-0500 Body height 165.1 cm Alyson Bray RN [facility], [facility] [employer] [facility] [employer] [facility] [employer] 08-17-2015 09:07-0500 Body mass index (BMI) [Ratio] 30.79 kg/m2 Alyson Bray RN [facility], [facility] [employer] 08-17-2015 09:07-0500 Body surface area Derived from formula 1.91 m2 Alyson Bray RN [facility], [employer] 08-17-2015 09:07-0500 Body weight 83.92 kg Alyson Bray RN [facility] [employer] [facility] [employer] 08-17-2015 09:07-0500 Diastolic blood pressure 90 mm[Hg] Alyson Bray RN [facility], [employer] [facility] [employer] [facility] [employer] Comment on above: Patient Position: Sitting; Cuff Location : Left Arm; Cuff Size: Large 08-17-2015 09:07-0500 Heart rate 74 /min Alyson Bray RN [facility] [employer] [facility] [employer] Comment on above: Pattern: Regular 08-17-2015 09:07-0500 Systolic blood pressure 133 mm[Hg] Alyson Bray RN [facility] [employer] [facility], [employer] [facility] [employer] [facility] [employer] Comment on above: Patient Position: Sitting; Cuff Location : Left Arm; Cuff Size: Large 06-22-2015 09:33-0500 Body height 165.1 cm Alyson Bray RN [facility] [employer] [facility] [employer] [facility] [employer] [facility] [employer] 06-22-2015 09:33-0500 Body mass index (BMI) [Ratio] 31.45 kg/m2 Alyson Bray RN [facility], [facility], [employer] 06-22-2015 09:33-0500 Body surface area Derived from formula 1.93 m2 Alyson Bray RN [facility], [facility], [employer] 06-22-2015 09:33-0500 Body weight 85.73 kg Alyson Bray RN [facility], [employer] 06-22-2015 09:33-0500 Diastolic blood pressure 104 mm[Hg] Alyson Bray RN [facility], [employer] [facility] [employer] [facility], [employer]. Comment on above: Patient Position: Sitting; Cuff Location : Left Arm; Cuff Size: Large 06-22-2015 09:33-0500 Heart rate 97 /min Alyson Bray RN [facility] [employer] [facility], [employer]. Comment on above: Pattern: Regular 06-22-2015 09:33-0500 Systolic blood pressure 142 mm[Hg] Alyson Bray RN [facility] [employer] [facility], [employer]. Comment on above: Patient Position: Sitting; Cuff Location : Left Arm; Cuff Size: Large 12-10-2014 10:32-0400 Body height 166.37 cm Tessy Zuñiga RN [facility], [facility], [employer] 12-10-2014 10:32-0400 Body mass index (BMI) [Ratio] 35.4 kg/m2 Tessy Zuñiga RN [facility], [facility] 12-10-2014 10:32-0400 Body surface area Derived from formula 2.06 m2 Tessy Zñuiga RN [facility] [employer] [facility], [employer]. 12-10-2014 10:32-0400 Body weight 97.98 kg Tessy Zuñiga RN [facility] [employer] [facility], [facility] [employer] [facility], [employer]. 12-10-2014 10:32-0400 Diastolic blood pressure 84 mm[Hg] Tessy Zuñiga RN [facility] [employer] [facility] [employer] [facility] [employer] Comment on above: Patient Position: Sitting; Cuff Location : Left Arm; Cuff Size: Large 12-10-2014 10:32-0400 Heart rate 73 /min Tessy Zuñiga RN [facility] [employer] [facility] [employer] [facility] [employer] Comment on above: Pattern: Regular 12-10-2014 10:32-0400 Systolic blood pressure 121 mm[Hg] Tessy Zuñiga RN [facility] [employer] [facility] [employer] [facility] [employer] Comment on above: Patient Position: Sitting; Cuff Location : Left Arm; Cuff Size: Large 09-01-2014 15:11-0500 Body height 166.37 cm Alyson Bray RN [facility] [employer] [facility] [employer] [facility] [employer] 09-01-2014 15:11-0500 Body mass index (BMI) [Ratio] 35.72 kg/m2 Alyson Bray RN [facility] [employer] [facility] [employer] 09-01-2014 15:11-0500 Body surface area Derived from formula 2.06 m2 Alyson Bray RN [facility], [facility] [employer] [facility] [employer] 09-01-2014 15:11-0500 Body weight 98.88 kg Alyson Bray RN [facility] [employer] [facility] [employer] [facility] [employer] 09-01-2014 15:11-0500 Diastolic blood pressure 82 mm[Hg] Alyson Bray RN [facility] [employer] [facility] [employer] [facility] [employer] [facility] [employer] Comment on above: Patient Position: Sitting; Cuff Location : Left Arm; Cuff Size: Large 09-01-2014 15:11-0500 Heart rate 78 /min Alyson Bray RN [facility] [employer] [facility] [employer] [facility] [employer] [facility] [employer] Comment on above: Pattern: Regular 09-01-2014 15:11-0500 Systolic blood pressure 125 mm[Hg] Alyson Bray RN [facility] [employer] [facility] [employer] [facility] [employer] [facility] [employer] Comment on above: Patient Position: Sitting; Cuff Location : Left Arm; Cuff Size: Large 08-14-2014 10:49-0500 Body height 167.64 cm Myla Pereyra RN [facility] [employer] [facility] [employer] [facility] 08-14-2014 10:49-0500 Body mass index (BMI) [Ratio] 34.86 kg/m2 Myla Pereyra RN [facility] [employer] [facility] 08-14-2014 10:49-0500 Body surface area Derived from formula 2.07 m2 Myla Pereyra RN [facility] [employer] [facility] [employer] [facility] 08-14-2014 10:49-0500 Body temperature 98.5 [degF] Myla Pereyra RN [facility] [employer] [employer] Comment on above: Method: Oral 08-14-2014 10:49-0500 Body weight 97.98 kg Myla Pereyra RN [facility] [employer] [facility] [employer] [facility] 08-14-2014 10:49-0500 Diastolic blood pressure 75 mm[Hg] Myla Pereyra RN [facility] [employer] [facility] [employer] [facility] Comment on above: Patient Position: Sitting; Cuff Location : Left Arm; Cuff Size: Standard 08-14-2014 10:49-0500 Heart rate 91 /min Myla Pereyra RN [facility] [employer] [facility] [employer] [facility] [employer] Comment on above: Pattern: Regular 08-14-2014 10:49-0500 Systolic blood pressure 120 mm[Hg] Myla Pereyra RN [facility] [employer] [facility] [employer] [facility] [employer] [facility] Comment on above: Patient Position: Sitting; Cuff Location : Left Arm; Cuff Size: Standard 04-10-2014 09:56-0400 Body height 167.64 cm Myla Pereyra RN [facility] [employer] [facility] [employer] [facility] 04-10-2014 09:56-0400 Body mass index (BMI) [Ratio] 34.54 kg/m2 Myla Pereyra RN [facility] [employer] [facility] [employer] [facility] 04-10-2014 09:56-0400 Body surface area Derived from formula 2.06 m2 Myla Pereyra RN [facility] [employer] [facility] 04-10-2014 09:56-0400 Body temperature 98.6 [degF] Myla Pereyra RN [facility] [employer] [facility] Comment on above: Method: Oral 04-10-2014 09:56-0400 Body weight 97.07 kg Myla Pereyra RN [facility] [employer] [facility] 04-10-2014 09:56-0400 Diastolic blood pressure 84 mm[Hg] Myla Pereyra RN [facility] [employer] [facility] [employer] Comment on above: Patient Position: Sitting; Cuff Location : Left Arm; Cuff Size: Standard 04-10-2014 09:56-0400 Heart rate 66 /min Myla Pereyra RN [facility] [employer] [facility] [employer]. Comment on above: Pattern: Regular 04-10-2014 09:56-0400 Systolic blood pressure 119 mm[Hg] Myla Pereyra RN [facility] [employer] [facility] [employer] [facility] [employer] [facility] [employer]. Comment on above: Patient Position: Sitting; Cuff Location : Left Arm; Cuff Size: Standard 06-27-2013 14:51-0500 Body height 166.37 cm Myla Pereyra RN [facility] [employer] [facility] 06-27-2013 14:51-0500 Body mass index (BMI) [Ratio] 35.4 kg/m2 Myla Pereyra RN [facility] [employer] [facility] [employer] [facility] 06-27-2013 14:51-0500 Body surface area Derived from formula 2.06 m2 Myla Pereyra RN [facility] [employer] [facility] 06-27-2013 14:51-0500 Body temperature 98.5 [degF] Myla Pereyra RN [facility] [employer] [facility] [employer] [facility] [employer] Comment on above: Method: Oral 06-27-2013 14:51-0500 Body weight 97.98 kg Myla Pereyra RN [facility] [employer] [facility] 06-27-2013 14:51-0500 Diastolic blood pressure 73 mm[Hg] Myla Pereyra RN [facility] [employer] [facility] Comment on above: Patient Position: Sitting; Cuff Location : Left Arm; Cuff Size: Standard 06-27-2013 14:51-0500 Heart rate 73 /min Myla Pereyra RN [facility] [employer] [facility] [employer] Comment on above: Pattern: Regular 06-27-2013 14:51-0500 Inhaled oxygen concentration 21 % Myla Pereyra RN [facility] [employer] [facility] Comment on above: Room air 06-27-2013 14:51-0500 SaO2% (BldA) [Mass fraction] 96 % Myla Pereyra RN [facility] [employer] [facility] 06-27-2013 14:51-0500 Systolic blood pressure 112 mm[Hg] Myla Pereyra RN [facility], [employer] [facility] [employer] [facility] [employer] Comment on above: Patient Position: Sitting; Cuff Location : Left Arm; Cuff Size: Standard 05-26-2013 08:35-0500 Body height 166.37 cm Myla Pereyra RN [facility] [employer] [facility] 05-26-2013 08:35-0500 Body mass index (BMI) [Ratio] 35.07 kg/m2 Myla Pereyra RN [facility] [employer] [facility] 05-26-2013 08:35-0500 Body surface area Derived from formula 2.05 m2 Myla Pereyra RN [facility] [employer] [facility] 05-26-2013 08:35-0500 Body temperature 98.1 [degF] Myla Pereyra RN [facility] [employer] [facility] [employer] [facility] [employer] [facility] [employer] Comment on above: Method: Oral 05-26-2013 08:35-0500 Body weight 97.07 kg Myla Pereyra RN [facility] [employer] [facility] 05-26-2013 08:35-0500 Diastolic blood pressure 80 mm[Hg] Myla Pereyra RN [facility] [employer] [facility] Comment on above: Patient Position: Sitting; Cuff Location : Left Arm; Cuff Size: Standard 05-26-2013 08:35-0500 Heart rate 66 /min Myla Pereyra RN [facility] [employer] [facility] Comment on above: Pattern: Regular 05-26-2013 08:35-0500 Systolic blood pressure 116 mm[Hg] Myla Pereyra RN [facility] [employer] [facility] Comment on above: Patient Position: Sitting; Cuff Location : Left Arm; Cuff Size: Standard 12-23-2012 10:01-0400 Body height 166.37 cm Myla Pereyra RN [facility] [employer] [facility] 12-23-2012 10:01-0400 Body mass index (BMI) [Ratio] 34.66 kg/m2 Myla Pereyra RN [facility] [employer] [facility] 12-23-2012 10:01-0400 Body surface area Derived from formula 2.04 m2 Myla Pereyra RN [facility] [employer] [facility] 12-23-2012 10:01-0400 Body temperature 98.4 [degF] Myla Pereyra RN [facility] [employer] [facility] Comment on above: Method: Oral 12-23-2012 10:01-0400 Body weight 95.94 kg Myla Pereyra RN [facility] [employer] [facility] [employer] [facility] 12-23-2012 10:01-0400 Diastolic blood pressure 88 mm[Hg] Myla Pereyra RN [facility] [employer] [facility] [employer] [facility] Comment on above: Patient Position: Sitting; Cuff Location : Left Arm; Cuff Size: Standard 12-23-2012 10:01-0400 Heart rate 83 /min Myla Pereyra RN [facility] [employer] [facility] Comment on above: Pattern: Regular 12-23-2012 10:01-0400 Systolic blood pressure 126 mm[Hg] yMla Pereyra RN [facility] [employer] [facility] Comment on above: Patient Position: Sitting; Cuff Location : Left Arm; Cuff Size: Standard 06-24-2012 10:03-0500 Body height 166.37 cm Alyson Bray RN [facility] 06-24-2012 10:03-0500 Body mass index (BMI) [Ratio] 34.41 kg/m2 Alyson Bray RN [facility] 06-24-2012 10:03-0500 Body surface area Derived from formula 2.03 m2 Alyson Bray RN [facility] 06-24-2012 10:03-0500 Body weight 95.26 kg Alyson Bray RN [facility] 06-24-2012 10:03-0500 Diastolic blood pressure 90 mm[Hg] Alyson Bray RN [facility] [employer] [facility] Comment on above: Patient Position: Sitting; Cuff Location : Left Arm; Cuff Size: Large 06-24-2012 10:03-0500 Heart rate 79 /min Alyson Bray RN [facility] [employer] [facility] [employer] [facility] Comment on above: Pattern: Regular 06-24-2012 10:03-0500 Systolic blood pressure 134 mm[Hg] Alyson Bray RN [facility] [employer] [facility] [employer] [facility] Comment on above: Patient Position: Sitting; Cuff Location : Left Arm; Cuff Size: Large 05-27-2012 14:27-0500 Body height 166.37 cm Alyson Bray RN [facility] 05-27-2012 14:27-0500 Body mass index (BMI) [Ratio] 35.07 kg/m2 Alyson Bray RN [facility] 05-27-2012 14:27-0500 Body surface area Derived from formula 2.05 m2 Alyson Bray RN [facility] 05-27-2012 14:27-0500 Body temperature 97.9 [degF] Alyson Bray RN [facility] [employer] [facility] Comment on above: Method: Oral 05-27-2012 14:27-0500 Body weight 97.07 kg Alyson Bray RN [facility] 05-27-2012 14:27-0500 Diastolic blood pressure 88 mm[Hg] Alyson Bray RN [facility] [employer] [facility] [employer] Comment on above: Patient Position: Sitting; Cuff Location : Left Arm; Cuff Size: Large 05-27-2012 14:27-0500 Heart rate 80 /min Alyson Bray RN [facility] [employer] [facility] Comment on above: Pattern: Regular 05-27-2012 14:27-0500 Systolic blood pressure 138 mm[Hg] Alyson Bray RN [facility] [employer] [facility] [employer]. Comment on above: Patient Position: Sitting; Cuff Location : Left Arm; Cuff Size: Large 02-02-2012 13:57-0400 Body height 166.37 cm Alyson Bray RN [facility] 02-02-2012 13:57-0400 Body mass index (BMI) [Ratio] 35.56 kg/m2 Alyson Bray RN [facility] 02-02-2012 13:57-0400 Body surface area Derived from formula 2.06 m2 Alyson Bray RN [facility] [employer] [facility] 02-02-2012 13:57-0400 Body weight 98.43 kg Alyson Bray RN [facility] [employer] [facility] 02-02-2012 13:57-0400 Diastolic blood pressure 82 mm[Hg] Alyson Bray RN [facility] [employer] [facility] Comment on above: Patient Position: Sitting; Cuff Location : Left Arm; Cuff Size: Large 02-02-2012 13:57-0400 Heart rate 82 /min Alyson Bray RN [facility], [employer] [facility] [employer] [facility] Comment on above: Pattern: Regular 02-02-2012 13:57-0400 Systolic blood pressure 121 mm[Hg] Alyson Bray RN [facility] [employer] [facility] [employer] [facility] Comment on above: Patient Position: Sitting; Cuff Location : Left Arm; Cuff Size: Large 10-04-2011 11:41-0400 Body height 166.37 cm Myla Pereyra RN [facility] [employer] [facility] 10-04-2011 11:41-0400 Body mass index (BMI) [Ratio] 35.15 kg/m2 Myla Pereyra RN [facility] [employer] [facility] 10-04-2011 11:41-0400 Body surface area Derived from formula 2.05 m2 Myla Pereyra RN [facility] [employer] [facility] 10-04-2011 11:41-0400 Body temperature 98.9 [degF] Myla Pereyra RN [facility] [employer] [facility] [employer] [facility] [employer] [facility] Comment on above: Method: Oral 10-04-2011 11:41-0400 Body weight 97.3 kg Myla Pereyra RN [facility] [employer] [facility] [employer] [facility] 10-04-2011 11:41-0400 Diastolic blood pressure 77 mm[Hg] Myla Pereyra RN [facility] Comment on above: Patient Position: Sitting; Cuff Location : Left Arm; Cuff Size: Standard 10-04-2011 11:41-0400 Heart rate 82 /min Myla Pereyra RN [facility] Comment on above: Pattern: Regular 10-04-2011 11:41-0400 Systolic blood pressure 111 mm[Hg] Myla Pereyra RN [facility] Comment on above: Patient Position: Sitting; Cuff Location : Left Arm; Cuff Size: Standard 12-27-2010 13:02-0400 Body weight 95.71 kg YURI [facility] 12-27-2010 13:02-0400 Diastolic blood pressure 82 mm[Hg] YURI LAWRENCE [facility] Comment on above: Patient Position: Sitting; Cuff Location : Left Arm; Cuff Size: Standard 12-27-2010 13:02-0400 Heart rate 74 /min YURI LAWRENCE [facility] [employer] [facility] Comment on above: Pattern: Regular 12-27-2010 13:02-0400 Systolic blood pressure 123 mm[Hg] YURI [facility] Comment on above: Patient Position: Sitting; Cuff Location : Left Arm; Cuff Size: Standard 06-17-2010 09:00-0500 Body height 166.37 cm Alyson Bray RN [facility] [facility] 06-17-2010 09:00-0500 Body mass index (BMI) [Ratio] 34.25 kg/m2 Alyson Bray RN [facility] 06-17-2010 09:00-0500 Body surface area Derived from formula 2.03 m2 Alyson Bray RN [facility] 06-17-2010 09:00-0500 Body weight 94.8 kg [facility] [place] [employer] [facility] 06-17-2010 09:00-0500 Diastolic blood pressure 80 mm[Hg] [facility] [place] [employer] [facility] [employer]. Comment on above: Patient Position: Sitting; Cuff Location : Left Arm; Cuff Size: Large 06-17-2010 09:00-0500 Heart rate 65 /min [facility] [place] [employer] [facility] Comment on above: Pattern: Regular 06-17-2010 09:00-0500 Systolic blood pressure 114 mm[Hg] [facility] [place] [employer] [facility] [employer] Comment on above: Patient Position: Sitting; Cuff Location : Left Arm; Cuff Size: Large Encounters Encounter Date Encounter Type Care Provider Facility Start: 12-18-2024 End: 12-18-[address] Irma Green MD Work Phone: [facility] Work Phone: Start: 12-18-2024 End: 12-18-2024 Patient encounter procedure Lucrecia PORTILLO -Ltac[facility] Work Phone: Start: 12-18-2024 End: 12-18-2024 ambulatory Lucrecia Montoya Facility:[facility] Start: 12-15-2024 End: 12-15-2024 Patient encounter procedure Lucrecia PORTILLO -[facility] Work Phone: Start: 12-15-2024 End: 12-15-2024 ambulatory Lucrecia Montoya [facility] Work Phone: Start: 08-05-2024 End: 08-05-2024 Office outpatient visit 25 minutes IRMA GREEN MD Work Phone: [facility] [employer] [facility] [place] Start: 06-28-2023 End: 06-28-2023 Medication Refill/Order IRMA GREEN MD Work Phone: [facility] Start: 06-28-2023 End: 06-28-2023 Office outpatient visit 15 minutes [facility] [place] Start: 02-12-2023 End: 02-12-2023 ambulatory STEPHANIE Richa GREEN Facility:[facility] Start: 01-30-2023 End: 01-30-2023 ambulatory STEPHANIE GREEN Facility:[facility] Start: 01-30-2023 End: 01-30-2023 Subsequent hospital visit by physician [facility] ([facility]) Work Phone: [facility] Comment on above: Encounter for follow -up examination after completed treatment for malignant neoplasm [Z08] Start: 01-24-2023 ambulatory Aisha Lopez LAW FIRM ADMINISTRATOR.SOFTWARE SALES CONSULTANT Work Phone: [facility] Comment on above: labs Start: 01-24-2023 E-mail encounter fro m caregiver Aisha Lopez LAW FIRM ADMINISTRATOR.SOFTWARE SALES CONSULTANT Work Phone: [facility] Start: 01-23-2023 End: 01-24-2023 ambulatory STEPHANIE GREEN Facility:[facility] Start: 01-23-2023 End: 01-23-2023 Patient encounter procedure Aisha Lopez LAW FIRM ADMINISTRATOR.SOFTWARE SALES CONSULTANT Work Phone: [facility] Comment on above: Encounter for follow -up examination after completed treatment for malignant neoplasm (Primary Dx); History of cancer tonsil; Sore throat Start: 01-19-2023 Telephone encounter Shannan Tom MD Work Phone: General Surgery Comment on above: Future Appointment Start: 10-16-2022 End: 10-16-2022 Office outpatient visit 25 minutes IRMA GREEN MD Work Phone: [employer] Start: 09-29-2021 End: 09-29-2021 Office outpatient visit 25 minutes IRMA GREEN MD Work Phone: [employer] [facility] [place]. Start: 09-24-2020 End: 09-24-2020 Medication Refill/Order IRMA GREEN MD Work Phone: [employer] [facility]. Start: 09-20-2020 End: 09-20-2020 Office outpatient visit 15 minutes IRMA GREEN MD Work Phone: [employer] [facility]. Start: 08-25-2020 End: 08-29-2020 Medication Refill/Order IRMA GREEN MD Work Phone: [employer]. Start: 08-07-2019 End: 08-07-2019 Nutrition therapy IRMA GREEN MD Work Phone: [employer]. Start: 08-06-2019 End: 08-06-2019 Patient encounter procedure IRMA GREEN [facility] Start: 08-05-2019 End: 08-05-2019 Office outpatient visit 15 minutes IRMA GREEN MD Work Phone: [facility] [place]. Start: 07-26-2018 End: 07-26-2018 Lab Only IRMA GREEN MD Work Phone: [employer]. Start: 07-04-2018 End: 07-04-2018 Office outpatient visit 15 minutes IRMA GREEN MD Work Phone: [employer]. Start: 06-18-2017 End: 06-18-2017 Follow-up encounter IRMA GREEN MD Work Phone: [employer]. Start: 06-18-2017 End: 06-18-2017 Office outpatient visit 15 minutes IRMA GREEN MD Work Phone: [employer]. Start: 05-28-2017 End: 05-28-2017 Medication Refill/Order IRMA GREEN MD Work Phone: [facility] Start: 12-07-2016 End: 12-07-2016 Office outpatient visit 15 minutes IRMA GREEN MD Work Phone: [employer] [facility]. Start: 04-10-2016 End: 04-10-2016 Medication Refill/Order IRMA GREEN MD Work Phone: [facility] [facility] Start: 04-07-2016 End: 04-07-2016 Results Review [facility] GREEN [facility] Start: 04-06-2016 End: 04-06-2016 Office outpatient visit 15 minutes IRMA GREEN MD Work Phone: [employer] [facility] [place] Start: 01-22-2016 End: 01-22-2016 Lab Only IRMA GREEN MD Work Phone: [facility] [place] Start: 10-18-2015 End: 10-18-2015 Office outpatient visit 15 minutes IRMA GREEN MD [facility] Start: 08-17-2015 End: 08-17-2015 Office outpatient visit 15 minutes IRMA GREEN MD Work Phone: [employer] [facility] [place]. Start: 06-22-2015 End: 06-22-2015 Office outpatient visit 15 minutes IRMA GREEN MD Work Phone: [employer] [facility] [place]. Start: 05-12-2015 End: 05-12-2015 Results Review IRMA GREEN MD Work Phone: [employer] [facility] [place] Start: 04-05-2015 End: 04-05-2015 Results Review IRMA GREEN MD Work Phone: [employer] [facility] [place] Start: 12-16-2014 End: 12-16-2014 Patient encounter procedure IRMA GREEN MD Work Phone: [facility] [place]. Start: 12-10-2014 End: 12-10-2014 Office outpatient visit 15 minutes IRMA GREEN MD Work Phone: [facility] [place]. Start: 09-01-2014 End: 09-01-2014 Historical Summary IRMA GREEN MD Work Phone: [facility] [employer] [facility] Start: 09-01-2014 End: 09-01-2014 Patient encounter procedure IRMA GREEN MD Work Phone: [facility] [employer] [facility] [place]. Start: 09-01-2014 End: 09-01-2014 Office outpatient visit 15 minutes [facility] GRE[facility] Start: 08-14-2014 End: 08-14-2014 Office outpatient visit 15 minutes IRMA GREEN MD [facility] Start: 04-10-2014 End: 04-10-2014 Results Review [facility] Start: 04-10-2014 End: 04-10-2014 Patient encounter procedure [facility] GREEN [facility] Start: 06-27-2013 End: 06-27-2013 Patient encounter procedure [facility]MA GREEN MD [facility] [place]. Start: 05-27-2013 End: 05-27-2013 Follow-up encounter IRMA GREEN MD Work Phone: [facility] [employer] Start: 05-26-2013 End: 05-26-2013 Patient encounter procedure IRMA GREEN MD [facility] [place]. Start: 02-26-2013 End: 02-26-2013 Medication Refill/Order IRMA GREEN MD Work Phone: [employer] [facility] [place]. Start: 12-23-2012 End: 12-23-2012 Patient encounter procedure IRMA GREEN MD Work Phone: [facility] [place]. Start: 06-25-2012 End: 06-25-2012 Nutrition therapy IRMA GREEN MD Work Phone: [facility] [employer] [facility] [place]. Start: 06-24-2012 End: 06-24-2012 Patient encounter procedure IRMA GREEN MD Work Phone: [facility] [employer]. Start: 05-27-2012 End: 05-27-2012 Patient encounter procedure IRMA GREEN MD Work Phone: [employer] [facility] [place]. Start: 03-13-2012 End: 03-13-2012 Follow-up encounter IRMA GREEN MD Work Phone: [facility] [place] Start: 03-12-2012 End: 03-12-2012 Lab Only IRMA GREEN MD [facility] Phone[facility] [employer] [facility] Start: 02-02-2012 End: 02-02-2012 Office outpatient visit 25 minutes IRMA GREEN MD Work Phone: [employer] [facility] [place]. Start: 01-25-2012 End: 01-25-2012 Medication Refill/Order IRMA GREEN MD Work Phone: [employer]. Start: 01-02-2012 End: 01-02-2012 Medication Refill/Order IRMA GREEN MD Work Phone: [employer] [facility] [place]. Start: 10-04-2011 End: 10-04-2011 Patient encounter procedure IRMA GREEN MD Work Phone: [employer]. Start: 09-29-2011 End: 09-29-2011 Medication Refill/Order IRMA GREEN MD Work Phone: [facility] [employer] [facility] [place]. Start: 07-21-2011 End: 07-21-2011 Medication Refill/Order IRMA GREEN MD Work Phone: [facility] [employer] [facility] [place]. Start: 04-10-2011 End: 04-10-2011 Medication Refill/Order IRMA GREEN MD Work Phone: [facility] [employer] [facility] [place]. Start: 03-07-2011 End: 03-07-2011 Medication Refill/Order IRMA GREEN MD Work Phone: [facility] [employer] [facility] [place]. Start: 01-12-2011 End: 01-12-2011 Results Review IRMA GREEN MD Work Phone: [facility] [employer] [facility] [place] Start: 01-05-2011 End: 01-05-2011 Lab Only IRMA GREEN MD Work Phone: [facility] [employer] [facility] [place]. Start: 12-27-2010 End: 12-27-2010 Patient encounter procedure IRMA GREEN MD Work Phone: [facility] [employer] [facility] [place]. Start: 12-22-2010 End: 12-23-2010 Medication Refill/Order IRMA GREEN MD Work Phone: [facility] [employer] [facility] [place]. Start: 10-19-2010 End: 10-19-2010 Medication Refill/Order IRMA GREEN MD Work Phone: [facility] [employer] [facility] [place]. Start: 06-17-2010 End: 06-17-2010 Patient encounter procedure IRMA GREEN MD Work Phone: [facility] [employer] [facility] [place]. Start: 04-27-2010 End: 04-27-2010 Historical Summary IRMA GREEN MD Work Phone: [employer] [facility] [place]. Start: 12-29-2009 End: 12-29-2009 Historical Summary IRMA GREEN MD Work Phone: [facility]. Procedures Date Procedure Procedure Detail Performing Clinician Start: 06-28-2023 End: 06-28-2023 Dischrg meds reconciled w/current med list IRMA GREEN MD Work Phone: Start: 01-30-2023 Ct soft tissue neck w/contrast material Aisha Trinidad Kahnert LAW FIRM ADMINISTRATOR.SOFTWARE SALES CONSULTANT Work Phone: Start: 01-30-2023 Ct thorax w/contrast material Aisha Trinidad Kahnert LAW FIRM ADMINISTRATOR.SOFTWARE SALES CONSULTANT Work Phone: Start: 10-16-2022 End: 10-16-2022 Dischrg meds reconciled w/current med list IRMA GREEN MD Work Phone: Start: 09-20-2020 End: 09-20-2020 Urinary Incontinence Myla Pereyra RN Comment on above: Negative. Start: 08-05-2019 End: 08-05-2019 Dischrg meds reconciled w/current med list IRMA GREEN MD Work Phone: Start: 07-04-2018 End: 07-04-2018 Dischrg meds reconciled w/current med list STEPHANIE GREEN MD Work Phone: Start: 06-22-2015 End: 06-22-2015 TDAP - Adacel/Boostrix Myla Pereyra RN Start: 02-25-2015 End: 02-25-2015 Tonsillectomy JAYLEEN ALLEN Comment on above: Funmi Rodriguez Start: 09-01-2014 End: 09-01-2014 Radex fingr minimum 2 views R STEPHANIE BUTCHER MD Work Phone: Comment on above: Please call report t o the [place] office. Start: 03-12-2012 End: 03-12-2012 Prostate specific antigen measurement Myla Pereyra RN Comment on above: Results:. 0.73 Start: 07-16-2010 End: 07-16-2010 Ophthalmic examination and evaluation Myla Pereyra RN Start: 07-16-2009 End: 07-16-2009 Screening colonoscopy Myla Pereyra RN Comment on above: Refused. Start: 07-16-1991 End: 07-16-1991 ORIF left forearm fracture JAYLEEN TIFFANY Comment on above: Left. Radiography of hand JAYLEEN TIFFANY Comment on above: Date: 08/2014. finger L avulsion L thumb prox phalanx Plan of Treatment Date Care Activity Detail Author Start: 01-23-2026 DIABETES SCREEN DIABETES SCREEN [facility] Start: 01-23-2026 Diabetes Screening Diabetes Screenin g [facility] Start: 02-10-2025 ambulatory Ambulatory Facility:[facility] Start: 03-16-2023 Influenza vaccination C [facility] Start: 10-16-2022 Blood count complete auto&auto difrntl wbc CBC, PLATELETS & AUT DIFF (22175) Start: 16-Oct-2022 14:11-04:00 Request [employer]. Start: 10-16-2022 Lipid panel LIPID PANEL ([id number]) Start: 16-Oct-2022 14:11-04:00 [employer]. Start: 10-16-2022 Comprehensive metabo lic panel CMP - COMPREHENSIVE METABOLIC PANEL ([id number]) Start: 16-Oct-2022 14:11-04:00 [employer]. Start: 07-16-2022 ADVANCE DIRECTIVE DISCUSSION ADVANCE DIRECTIVE DISCUSSION [facility] Start: 07-16-2022 DEPRESSION ASSESSMENT DEPRESSION ASS ESSMENT [facility] Start: 2022 Pneumococcal Vaccine : 65+ (1 - PCV) Pneumococcal Vaccine: 65+ (1 - PCV) [facility] Start: 2022 PNEUMOCOCCAL: 65+ (1 - PCV) PNEUMOCOCCAL: 65+ (1 - PCV) [facility] Start: 07-26-2018 Assay of thyroid stimulating hormone tsh TSH ([id number]) Start: 26-Jul-2018 13:07-05:00 Request [employer]. Start: 07-26-2018 Comprehensive metabo lic panel CMP - COMPREHENSIVE METABOLIC PANEL ([id number]) Start: 26-Jul-2018 13:07-05:00 Request [employer] Start: 07-26-2018 Blood count complete auto&auto difrntl wbc CBC, PLATELETS & AUT DIFF ([id number]) Start: 26-Jul-2018 13:06-05:00 Request [employer] Start: 07-19-2018 DIABETES SCREEN DIABETES SCREEN [facility] Start: 07-04-2018 Patient Education HYPERTENSION Indication: Benign essential HTN Start: 04-Jul-2018 Instruction Type: Patient Education [employer] Start: 06-18-2017 Patient Education HYPERTENSION Indication: Benign essential HTN Start: 18-Jun-2017 Instruction Type: Patient Education [employer] Start: 2017 RSV Vaccine (1 - 1-d ose 60+ series) RSV Vaccine (1 - 1-dose 60+ series) [facility] Start: 12-07-2016 Patient Education HYPERTENSION Indication: Benign essential HTN Start: 07-Dec-2016 Instruction Type: Patient Education [employer] Start: 12-10-2014 Ct soft tissue neck w/contrast material CT NECK SOFT TISSUE W CONTRAST ([id number]) Start: 10-Dec-2014 Intent [employer] Start: 08-14-2014 Patient Education [employer] Start: 06-27-2013 Patient Education BRONCHITIS - PNEUMONIA INSTRUCTIONS Indication: SINOBRONCHITIS (Renamed from Acute upper respiratory infection of multiple sites) Start: 27-Jun-2013 Instruction Type: Patient Education [employer] Start: 05-26-2013 Patient Education HYPERTENSION Indication: History of hyperlipidemia Start: 26-May-2013 Instruction Type: Patient Education [employer] Start: 2012 PROSTATE CANCER SCREENING DISCUSSION PROSTATE CANCER SCREENING DISCUSSION [facility] Start: 02-02-2012 Patient Education Prostate Spe cific Antigen Screening *: blood test Indication: Screening for prostate cancer (Renamed from Encounter for prostate cancer screening) Start: 02-Feb-2012 Instruction Type: Patient Education [employer] [facility] [place] Start: 10-04-2011 Patient Education BRONCHITIS, ACUTE Indication: Bronchitis, acute Start: 04-Oct-2011 Instruction Type: Patient Education [facility] [facility] [place] [facility] [place] Start: 2007 SHINGRIX VACCINE (1 of 2) SHINGRIX VACCINE (1 of 2) [facility] Start: 2002 COLOGUARD (FIT-DNA) COLOGUARD (FIT-D NA) [facility] Start: 2002 Colonoscopy COLONOSCOPY [facility] Start: 2002 COLORECTAL CANCER SCREENING COLORECTAL CANCER SCREENING [facility] Start: [address] COLONOGRAPHY [facility] Start: 2002 FECAL OCCULT BLOOD FECAL OCCULT BLOO D [facility] Start: 2002 SIGMOIDOSCOPY SIGMOIDOSCOPY [facility] Start: 1992 Lipid 1996 panel - Serum or Plasma Lipid Screening [facility] Start: 1992 LIPID SCREEN LIPID SCREEN [facility] Start: 1976 Urine microalbumin profile [facility] Start: 1975 HEPATITIS C SCREENING HEPATITIS C SC REENING [facility] Start: 1975 HIV SCREENING HIV SCREENING [facility] Start: 1957 COVID-19 VACCINE (#1) COVID-19 VACCI NE (#1) [facility] End: 02-22-2024 CT CHEST W IVCON CT CHEST W IVCON Radiology Routine Encounter for follow-up examination after completed treatment for malignant neoplasm History of cancer tonsil Sore throat 1 Occurrences starting 01/23/2023 until 02/22/2024 [facility] Work Phone: Comment on above: 1 Occurrences starti ng 01/23/2023 until 02/22/2024 End: 02-22-2024 Ct soft tissue neck w/contrast material CT NECK SOFT TISSUE W IVCON Radiology Routine Encounter for follow-up examination after completed treatment for malignant neoplasm History of cancer tonsil Sore throat 1 Occurrences starting 01/23/2023 until 02/22/2024 [facility] Work Phone: Comment on above: 1 Occurrences starti ng 01/23/2023 until 02/22/2024 Helicobacter pylori Ag [Presence] in Stool by Immunoassay [facility] Immunizations Immunization Date Immunization Notes Care Provider Neil horner 06-22-2015 unknown vaccine or immune globulin IRMA GREEN MD Work Phone: [facility] [employer] [facility]; [employer] [facility] Work Phone: 06-22-2015 *IMMUNIZATION ADMIN ([id number]) IRMA GREEN MD Work Phone: [facility] [employer] [facility]; [facility] 06-22-2015 influenza, injectabl e, quadrivalent, contains preservative IRMA GREEN MD Work Phone: [facility] [employer] [facility]; [employer] [facility]. Comment on above: Site: Deltoid (Right ) 06-22-2015 tetanus toxoid, redu pranav diphtheria toxoid, and acellular pertussis vaccine, adsorbed IRMA GREEN MD Work Phone: [facility]; [facility] [employer] [facility] Comment on above: Site: Deltoid (Left) 03-22-2007 pneumococcal Conjuga te, unspecified formulation IRMA GREEN MD Work Phone: [facility] [employer] [facility]; [employer] [facility] 03-22-2007 pneumococcal polysaccharide vaccine, 23 valent IRAM GREEN MD Work Phone: [facility]; [facility] 07-16-2006 tetanus and diphther ia toxoids, adsorbed, preservative free, for adult use (2 Lf of tetanus toxoid and 2 Lf of diphtheria toxoid) IRMA GREEN MD Work Phone: [facility] [employer] [facility]; [facility]. 07-16-1996 tetanus and diphther ia toxoids, adsorbed, preservative free, for adult use (2 Lf of tetanus toxoid and 2 Lf of diphtheria toxoid) IRMA GREEN MD Work Phone: [facility]; [facility] influenza virus vaccine, unspecified formulation IRMA GREEN MD Work Phone: [facility]; [facility]. Comment on above: Refused. 08/05/2019 influenza virus vaccine, unspecified formulation IRMA GREEN MD Work Phone: [facility]; [facility] Comment on above: Refused. 08-05-24 pneumococcal conjuga te vaccine, 13 valent IRMA GREEN MD Work Phone: [facility]; [facility]. Comment on above: Refused. 10/16/2022 NEGATED: Highlighted row has not occurred!07-04-2018 influenza, seasonal, injectable IRMA GREEN MD Work Phone: [facility]; [facility] Payers Date Payer Category Payer Self-pay 2022 Medicare MEDICARE MEDICAR E A AND B [id number] 2022-Present [phone] [place] [address] Medicare [id number] 2022 Medicare [id number] 2014 [facility] [id number] 1955 Unknown [id number] 1955 Unknown [id number] [facility] [id number] Unknown [id number] Unknown [id number] Unknown [id number] Social History Date Type Detail Facility Start: 03-29-2015 End: 12-15-2024 Tobacco smoking status NHIS Never smoked tobacco [facility] Start: 03-29-2015 Tobacco use and exposure Smokeless tobacco non-user [facility] Start: 05-28-2019 End: 01-23-2023 Alcohol intake Current non-drinker of alcohol (finding) [facility] Start: 1955 Sex Assigned At Male C [facility] Start: 11-30-2017 End: 01-23-2023 History of Social function [facility] Start: 11-30-2017 End: 01-23-2023 Tobacco use panel [facility] Adult Depression Screening Assessment 0 [facility] Start: 03-13-2019 Gender identity Identifies as male gender (finding) [facility] Start: 03-13-2019 Sexual orientation Heterosexual (fin ding) [facility] Alcohol Use: Alcohol Use: ; N o Alcohol Use. [facility] [employer] [facility]; [facility] [employer] [facility] [place] Highest Education [place] Attained: Highest Education Level Attained: ; High school graduate. [facility] [employer] [facility]; [facility] [employer] [facility] [place] Tobacco use: Tobacco use: ; N ever smoker. [facility] [employer] [facility] [place]; [facility] High school graduate [facility] [employer] [facility] [place]; [facility] [employer] [facility] [place] Work Phone: Start: 04-10-2015 Alcohol Alcohol [facility] Start: 04-10-2015 Tobacco Use Tobacco Use [facility] Clinical Notes 03-29-2015 to 12-15-2024 Note Date & Type Note Facility 12-15-2024 Evaluation note Diagnosis Onset Date Resolution Acid reflux acute December 15 7:42am Epigastric abdominal pain acute December 15, 2024 7 :42am Abdominal symptoms noneactive December 152024 7:42am [facility] Work Phone: 1(404) 769-861807-31-2023 NoteHNO ID: [id number] Author: Sheila Nolan MD Service: ? Author Type: Physician Type: Progress Notes Filed: 03/14/2023 12:41 AM Note Text: [place] [facility] established patient Previous Dr. Velasco patient, here for oncologic surveillance history bilateral tonsil cancers. 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 Former patient of Dr. Velasco. Patient has not been seen by ENT physician over the last 3 years, but has been experiencing increased phlegm and sore throat, as well as shortness of breath when breathing through his nose. Worse in the mornings and has been worsening since completing surgery. He also endorses weight loss Seen by Aisha on 01/23. [place] at the time revealed narrowed nasopharynx but no lesions, masses, or ulcerations. CT Neck on 01/30 with QUINN, no LAD. Patient also has a non-healing scab present below the auricle. States that scab has been present for 2 months without healing. PAST MEDICAL HISTORY Diagnosis Date Arm fracture, left Hypertension Hypoglycemia PAST SURGICAL HISTORY Procedure Laterality Date EGD PERCUTANEOUS PLACEMENT GASTROSTOMY TUBE 04/26/15 PICC LINE INSERT/CONSULT 05/09/2015 TONSILLECTOMY HX Current Outpatient Medications Medication Sig Dispense Refill POTASSIUM ORAL Take 1 tablet by mouth every other day. CALCIUM CARBONATE/VITAMIN D3 (CALCIUM + D ORAL) Take 1 capsule by mouth once daily. MULTIVITAMIN ORAL Take 1 tablet by mouth once daily. ASCORBIC ACID (VITAMIN C ORAL) Take 1 tablet by mouth once daily. losartan (COZAAR) 100 mg tablet Take 100 mg by mouth once daily. verapamil SR (CALAN SR, ISOPTIN SR) 120 mg CR tablet Take 1/2 tablet by mouth once daily. No current facility-administered medications for this visit. ALLERGIES Allergen Reactions Gluten GI Upset Upset stomach and diarrhea Lactose GI Upset Upset stomach FAMILY HISTORY Problem Relation Age of Onset other (CHF) Father Social History Tobacco Use Smoking status: Never Smokeless tobacco: Never Vaping Use Vaping Use: Never used Substance Use Topics Alcohol use: No Drug use: No REVIEW OF RADIOLOGICAL FILMS AND RECORDS: CT NECK 01/30/23 Negative for cervical soft tissue mass. Negative for cervical lymphadenopathy by size criteria. CT CHEST 01/30/23 No developing suspicious mass or adenopathy in the chest LABS: None PHYSICAL EXAM: Vitals - There were no vitals taken for this visit. Constitutional - General Appearance: well developed, well nourished, without obvious deformities Communication: speaks with a normal voice without hoarseness Head AND Face - Overall: Scab, left inferior pre-auricular. No other obvious scars, lesions or masses Parotid and submandibular glands: no masses or tenderness Facial strength: normal and equal bilaterally Ear, Nose, Mouth AND Throat - Ears: both left and right external auditory canals and TM's are normal, no external deformities Nasal exam: mucosa is pink, left nasal spur, visible turbinates are normal on anterior rhinoscopy Mastication: moderate dentition Oral Cavity and oropharynx: mucosa, hard and soft palates, tongue, tonsil area, posterior pharyngeal wall, lips and gums are without lesions Neck: appears symmetric, and on palpation is without masses or lymphadenopathy Thyroid: no asymmetry, thyromegaly, or thyroid nodules on palpation Cranial Nerves: II: Pupillary reflexes normal III, IV, : EOM normal V: 1,2,3: normal sensation VII: Normal strength in all divisions IX, X: Normal voice, palatal elevation and sensation XI: Shoulder strength normal XII: Tongue mobility normal ASSESSMENT: Haris Paniagua is a 67 year old male with hx completion chemo XRT for Stage IVB, 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 No evidence of disease today. Plan to follow up in 1 year. PLAN: - Consider Xylimelts for xerostomia - Trial nasal steroids for difficulty breathing through nose - Non-healing scab - try moisturizer, if no improvement recommend dermatology appointment - Follow-up in 1 year Zaid Marie MD For the service of Sheila Nolan MD Otolaryngology Staff Attestation Details as per Dr. Marie's note which I have reviewed and edited. I performed a history and physical examination of the patient and discussed the patient's management with the resident. I agree with the documented findings and treatmen (more content not included)...[facility] 01-30-2023 NoteHNO ID: [id number] Author: Sugey Monroe RT(R) Service: ? Author Type: Web Communications Specialist Type: Progress Notes Filed: 01/30/2023 3:58 PM Note Text: Radiology Service Progress Note DATE OF SERVICE: January 30, 2023 TIME: 3:58 PM PATIENT IDENTITY VERIFICATION COMPLETED USING TWO (2) STANDARD IDENTIFIERS: Name and Date of confirmed by patient verbally. FALL SCREENING: Has the patient had 2 falls in the last year or 1 fall with injury or currently using an Ambulatory Assistive Device (Walker, Cane, Wheelchair, Crutches, etc.)? No PATIENT GENDER DATA: Male PATIENT RELEVANT IMPLANT DATA REVIEWED: Yes ALLERGIES: Reviewed and unchanged CONTRAST ALLERGY: NO. EXAM: CT -CONTRAST INDUCED NEPHROPATHY RISK FACTORS: Patient age > 60 years CREATININE: Creatinine Date Value Ref Range Status 01/23/2023 0.89 0.73 - 1.22 mg/dL Final 12/04/2018 0.77 0.73 - 1.22 mg/dL Final Creatinine, Whole Blood (iSTAT) Date Value Ref Range Status 06/07/2016 0.90 0.70 - 1.40 mg/dL Final Estimated Glomerular Filtration Rate Date Value Ref Range Status 01/23/2023 95 >=60 mL/min/1.73m? Final Comment: Estimated Glomerular Filtration Rate (eGFR) is calculated using the 2020 CKD-EPI creatinine equation. This equation utilizes serum creatinine, sex, and age as parameters. The creatinine assay has traceable calibration to isotope dilution-mass spectrometry. Refer to KDIGO guidelines for clinical interpretation. In patients with unstable renal function, e.g. those with acute kidney injury, the eGFR may not accurately reflect actual GFR. eGFR- Date Value Ref Range Status 12/04/2018 >60 Final P.O.C.T. RESULTS: POC done: Yes, See Lab Tab January 30, 2023 TREATMENT: N/A PERIPHERAL IV DATA: Ambulatory: A peripheral IV was started in the Left antecubital site with a Angio cath: 22 gauge. RADIOLOGY DEPARTMENT: CT; Exam(s) Completed: Chest and Neck SIGNATURE: RT Vj(R) PATIENT NAME: Haris Paniagua DATE: January 30, 2023 TIME: 3:58 [facility]07-18-2023 History of Present illness Narrative* Sugey Monroe RT(R) - 01/30/2023 3:20 PM EDT Radiology Service Progress Note DATE OF SERVICE: January 30, 2023 TIME: 3:58 PM PATIENT IDENTITY VERIFICATION COMPLETED USING TWO (2) STANDARD IDENTIFIERS: Name and Date of confirmed by patient verbally. FALL SCREENING: Has the patient had 2 falls in the last year or 1 fall with injury or currently using an Ambulatory Assistive Device (Walker, Cane, Wheelchair, Crutches, etc.)? No PATIENT GENDER DATA: Male PATIENT RELEVANT IMPLANT DATA REVIEWED: Yes ALLERGIES: Reviewed and unchanged CONTRAST ALLERGY: NO. EXAM: CT -CONTRAST INDUCED NEPHROPATHY RISK FACTORS: Patient age > 60 years CREATININE: Creatinine Date Value Ref Range Status 01/23/2023 0.89 0.73 - 1.22 mg/dL Final 12/04/2018 0.77 0.73 - 1.22 mg/dL Final Creatinine, Whole Blood (iSTAT) Date Value Ref Range Status 06/07/2016 0.90 0.70 - 1.40 mg/dL Final Estimated Glomerular Filtration Rate Date Value Ref Range Status 01/23/2023 95 >=60 mL/min/1.73m Final Comment: Estimated Glomerular Filtration Rate (eGFR) is calculated using the 2020 CKD-EPI creatinine equation. This equation utilizes serum creatinine, sex, and age as parameters. The creatinine assay has traceable calibration to isotope dilution- mass spectrometry. Refer to KDIGO guidelines for clinical interpretation. In patients with unstable renal function, e.g. those with acute kidney injury, the eGFRmay not accurately reflect actual GFR. eGFR- Date Value Ref Range Status 12/04/2018 >60 Final P.O.C.T. RESULTS: POC done: Yes, See Lab Tab January 30, 2023 TREATMENT: N/A PERIPHERAL IV DATA: Ambulatory: A peripheral IV was started in the Left antecubital site with a Angio cath: 22 gauge. RADIOLOGY DEPARTMENT: CT; Exam(s) Completed: Chest and Neck SIGNATURE: RT Vj(R) PATIENT NAME: Haris Paniagua DATE: January 30, 2023 TIME: 3:58 PM documented in this encounterProtestant [facility]acon[facility]07-11-2023 NoteHNO ID: [id number] Author: Aisha Lopez APRN.SOFTWARE SALES CONSULTANT Service: ? Author Type: Nurse Practitioner Type: Progress Notes Filed: 01/23/2023 12:26 PM Note Text: [facility] Note CC: throat pain Patient of Dr. 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 His previous ENT MD moved to [place] he has not been by ENT for 3 years. C/O a lot of phlegm and tongue and throat being sore and trouble breathing in the past 3 days. She has not noted shortness of breath. states he has been losing weight and looks more gaunt. Has been using Vicks vapo rub at night time to help his breathing Patient also C/O nerve pain in head and neck sharp pains at times. He has not PCP for a long while. Advised that a visit to ED may be prudent due to the harder time breathing. He has been refusing to go to local ED but he considering this today. Appt has been changed to see DR Tom on 02/06/23. Spouse is also going to call Oncology SOFTWARE SALES CONSULTANT Luz Hussein also for input reviewing his appt list there is no longer any appt with Dr Tom on 02/06/2023, he does have an appt with Dr Nolan on 02/12/2023 he feels worse in the morning where he can't get air in through his nose if he goes to bed he feels he can breath just fine he has not been having any issues with swallowing he does not do any rinses will complain of soreness in the back of his tongue , if he is working and breahtes through his tongue he will get sore on the first swallow if he is chewing gum if he cannot get to waterhe will get soreness in the back of the tongue feels he has more irritation if he wakes up at night and was breathing through his mouth he will have increased estuardo he has been using vicks to help with his breathing at night this weekend he was mowing and felt his naal passeges were tight after resting a while he felt a little better does not usually get bothered by seasonal allergies occasoinal fever/sweat not continuous smoking: No Last 2 Encounter Wt Readings: Date: Wt: 01/23/2023 79.6 kg (175 lb 6.4 oz) 05/28/2019 82.6 kg (182 lb) BP 157/94 (BP Site: Left Arm, BP Position: Sitting, BP Cuff Size: Large Adult) Pulse 73 Temp 36.8 ?C (98.2 ?F) (Temporal) Resp 18 Wt 79.6 kg (175 lb 6.4 oz) SpO2 99% BMI 29.19 kg/m? Current Outpatient Medications Medication Sig Dispense Refill POTASSIUM ORAL Take 1 tablet by mouth every other day. CALCIUM CARBONATE/VITAMIN D3 (CALCIUM + D ORAL) Take 1 capsule by mouth once daily. MULTIVITAMIN ORAL Take 1 tablet by mouth once daily. ASCORBIC ACID (VITAMIN C ORAL) Take 1 tablet by mouth once daily. losartan (COZAAR) 100 mg tablet Take 100 mg by mouth once daily. verapamil SR (CALAN SR, ISOPTIN SR) 120 mg CR tablet Take 1/2 tablet by mouth once daily. No current facility-administered medications for this visit. EXAM: Constitutional - General Appearance: well developed, well nourished, without obvious deformities Communication: speaks with a strong voice without hoarseness Head AND Face - Overall: no obvious scars, lesions or masses Parotid and submandibular glands: no masses or tenderness Facial strength: normal and equal bilaterally Ear, Nose, Mouth AND Throat - Ears: both left and right external auditory canals and TM's are normal, no external deformities Nasal exam: mucosa is pink, septum is without perforation, visible turbinates are normal on anterior rhinoscopy Mastication: teeth appear in poor condition Oral Cavity and oropharynx: mucosa, hard and soft palates, tongue, tonsil area, posterior pharyngeal wall, lips and gums are without lesions Neck:fibrosis to the right neck, appears symmetric, and on palpation is without masses or lymphadenopathy Thyroid: no asymmetry, thyromegaly, or thyroid nodules on palpation Neuro: CN III - CN XII grossly intact Procedure: Flexible laryngoscopy was performed because of the following indication: hx of tonsil ca , mirror exam limited by gag reflex. After spraying the nose with xylocaine/neosynephrine, the flexible scope was placed in a transnasal fashion via bilateral nares. The nasopharynx is vary narrow, oropharynx, hypopharynx including the pyriform sinuses were normal. The base of tongue showed no gross lesions. The larynx itself showed no lesions. The vocal cords moved well bilaterally. Exam recorded on [facility] Procedure performed by Aisha Lopez APRN.SOFTWARE SALES CONSULTANT and r (more content not included)...[facility]07-11-2023 Nurse Note* Ladonna Slaughter Ma - 01/23/2023 10:57 AM EDT Additional intake questions: Has the patient had fever, nausea, vomiting, diarrhea, constipation, fatigue for > 1 week? Yes, fatigue Does the patient have a decreased appetite? No Does patient want to see a Coal Pipeline Operator? No (yes to any of above refer patient to schedulers for dietitian appointment) ) Does patient have any new or increased numbness or tingling of extremities? No Is patient interested in fertility information? NA Does patient need any prescription refills? No Does patient have an advanced directive in place? No, Patient refused referral to Social Work or Resource Center Electronically Signed By: Ladonna Slaughter Ma documented in this encounterProtestant [facility]acon[facility]07-11-2023 History of Present illness Narrative* Aisha Lopez APRN.SOFTWARE SALES CONSULTANT - 01/23/2023 10:50 AM EDT [facility] Note CC: throat pain Patient of Dr. 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 His previous ENT MD moved to [place] he has not been by ENT for 3 years. C/O a lot of phlegm and tongue and throat being sore and trouble breathing in the past 3 days. She has not noted shortness of breath. states he has been losing weight and looks more gaunt. Has been using Vicks vapo rub at night time to help his breathing Patient also C/O nerve pain in head and neck sharp pains at times. He has not PCP for a long while. Advised that a visit to ED may be prudent due to the harder time breathing. He has been refusing to go to local ED but he considering this today. Appt has been changed to see DR Tom on 02/06/23. Spouse is also going to call Oncology OLAYINKA Hussein also for input reviewing his appt list there is no longer any appt with Dr Tom on 02/06/2023, he does have an appt with Dr Nolan on 02/12/2023 he feels worse in the morning where he can't get air in through his nose if he goes to bed he feels he can breath just fine he has not been having any issues with swallowing he does not do any rinses will complain of soreness in the back of his tongue , if he is working and breahtes through his tongue he will get sore on the first swallow if he is chewing gum if he cannot get to waterhe will get soreness in the back of the tongue feels he has more irritation if he wakes up at night and was breathing through his mouth he will have increased estuardo he has been using vicks to help with his breathing at night this weekend he was mowing and felt his naal passeges were tight after resting a while he felt a little better does not usually get bothered by seasonal allergies occasoinal fever/sweat not continuous smoking: No Last 2 Encounter Wt Readings: Date: Wt: 01/23/2023 79.6 kg (175 lb 6.4 oz) 05/28/2019 82.6 kg (182 lb) BP 157/94 (BP Site: Left Arm, BP Position: Sitting, BP Cuff Size: Large Adult) Pulse 73 Temp 36.8 C (98.2 F) (Temporal) Resp 18 Wt 79.6 kg (175 lb 6.4 oz) SpO2 99% BMI 29.19 kg/m Current Outpatient Medications Medication Sig Dispense Refill POTASSIUM ORAL Take 1 tablet by mouth every other day. CALCIUM CARBONATE/VITAMIN D3 (CALCIUM + D ORAL) Take 1 capsule by mouth once daily. MULTIVITAMIN ORAL Take 1 tablet by mouth once daily. ASCORBIC ACID (VITAMIN C ORAL) Take 1 tablet by mouth once daily. losartan (COZAAR) 100 mg tablet Take 100 mg by mouth once daily. verapamil SR (CALAN SR, ISOPTIN SR) 120 mg CR tablet Take 1/2 tablet by mouth once daily. No current facility-administered medications for this visit. EXAM: Constitutional - General Appearance: well developed, well nourished, without obvious deformities Communication: speaks with a strong voice without hoarseness Head & Face - Overall: no obvious scars, lesions or masses Parotid and submandibular glands: no masses or tenderness Facial strength: normal and equal bilaterally Ear, Nose, Mouth & Throat - Ears: both left and right external auditory canals and TM's are normal, no external deformities Nasal exam: mucosa is pink, septum is without perforation, visible turbinates are normal on anterior rhinoscopy Mastication: teeth appear in poor condition Oral Cavity and oropharynx: mucosa, hard and soft palates, tongue, tonsil area, posterior pharyngeal wall, lips and gums are without lesions Neck:fibrosis to the right neck, appears symmetric, and on palpation is without masses or lymphadenopathy Thyroid: no asymmetry, thyromegaly, or thyroid nodules on palpation Neuro: CN III - CN XII grossly intact Procedure: Flexible laryngoscopy was performed because of the following indication: hx of tonsil ca , mirror exam limited by gag reflex. After spraying the nose with xylocaine/neosynephrine, the flexible scope was placed in a transnasalfashion via bilateral nares. The nasopharynx is vary narrow, oropharynx, hypopharynx including the pyriform sinuses were normal. The base of tongue showed no gross lesions. The larynx itself showed no lesions. The vocal cords moved well bilaterally. Exam recorded on [facility] Procedure performed by Aisha Lopez APRN.CNP and reviewed with patient TSH (uU/mL) Date Value 09/27/2016 5.340 07/21/2015 1.720 CMP Latest Ref Rng & Units 08/26/2015 06/07/2016 12/04/2018 SODIUM 135 - 146 mmol/L - - - POTASSIUM 3.5 - 5.0 mmol/L - - - CHLORIDE 98 - 110 mmol/L - - - CO2 23 - 32 mmol/L - - - GLUCOSE 65 - 100 mg/dL - - - BUN 10 - 25 mg/dL - - - CREATININE 0.73 - 1.22 mg/dL - - 0.77 EGFR-ALL OTHER RACES . >60 >60 >60 EGFR- - >60 >60 >60 PROTEIN, TOTAL 6.0 - 8.4 g/dL - - - ALBUMIN 3.5 - 5.0 g/dL - - - CALCIUM, TOTAL 8.5 - 10.5 mg/dL - - - BILIRUBIN, TOTAL 0.0 - 1.5 mg/dL - - - AST 7 - 40 U/L - - - ALT 5 - 50 U/L - - - ALKALINE PHOSPHATASE 40 - 150 U/L - - - CBC Latest Ref Rng & Units 07/19/2015 08/26/2015 06/07/2016 WBC 3.70 - 11.00 k/uL - - - RBC 4.20 - 6.00 m/uL - - - HEMOGLOBIN 13.0 - 17.0 g/dL - - - HEMOGLOBIN, FUNMI 13.0 - 17.0 g/dL 12.8(L) 14.2 15.5 HEMATOCRIT 39.0 - 51.0 % - - - MCV 80.0 - 100.0 fL - - - MCV, FUNMI 80.0 - 100.0 fL 96.5 94.1 91.1 MCH 26.0 - 34.0 pG - - - MCH, FUNMI 26.0 - 34.0 pg 32.0 32.5 31.2 MCHC 30.5 - 36.0 g/dL - - - MCHC, FUNMI 30.5 - 36.0 g/dL 33.2 34.5 34.2 RDW, FUNMI 11.5 - 15.0 % 12.6 12.2 13.1 RDW-CV 11.5 - 15.0 % - - - PLATELETS 150 - 400 k/uL - - - MPV 9.0 - 12.7 fL - - - MPV, FUNMI 9.0 - 12.7 fL 9.3 9.4 9.0 NEUT%, FUNMI % 68.3 - 67.7 MONO%, FUNMI % 13.1 - 12.1 EOS%, FUNMI % 3.1 - 2.1 BASO% % - - - BASO%, FUNMI % 0.3 - 0.3 ABS NEUT (ANC) 1.45 - 7.50 k/uL - - - ABS NEUT, FUNMI 1.45 - 7.50 k/uL 3.94 - 4.77 ABS LYMP, FUNMI 1.00 - 4.00 k/uL 0.88(L) - 1.25 ABS LYMPH 1.00 - 4.00 k/uL - - - ABS MONO 0.00 - 0.86 k/uL - - - ABS MONO, FUNMI 0.00 - 0.86 k/uL 0.76 - 0.85 ABS EOS, FUNMI 0.00 - 0.45 k/uL 0.18 - 0.15 ABS EOSIN 0.00 - 0.45 k/uL - - - ABS BASO 0.00 - 0.10 k/uL - - - ABS BASO, FUNMI 0.00 - 0.10 k/uL 0.02 - 0.02 DIFF TYPE - - - - ASSESSMENT: Haris Paniagua is a 67 year old male with hx 05/21/15: completion chemo XRT for Stage IVB, 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, 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) and synchronous stage III, T1N1, 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) Pt is currently 7.5y out from treatment PLAN AND RECOMMENDATIONS: (Z08) Encounter for follow-up examination after completed treatment for malignant neoplasm (primaryencounter diagnosis) (Z85.939) History of cancer tonsil (J02.9) Sore throat Comment: last visit 3 yrs ago, no scope for comparison in [facility], with narrowing of the nasopharynx Plan: CT NECK SOFT TISSUE W IVCON, iv contrast (will be provided with radiology test), CREATININE BLD, CT CHEST W IVCON, CBC + DIFF, TSH BLD, COMP METABOLIC PANEL discussed imaging, exercises for the neck, lymphedema exercises, flex scope completed today Encouraged continued use of salt/soda oral rinse along with neck massage / stretches daily imaging in the near future and to keep appt follow up as scheduled with Dr Nolan at the end of the month Aisha Lopez APRN.SOFTWARE SALES CONSULTANT Elements of this note, including HPI, ROS, Physical Exam, Assessment and Plan were copied and pasted from Dr Velasco's last office visit on 09/18/2019. Updates have been made where needed and reflect current exam and medical decision making from 01/23/2023 I spent a total of 39 minutes on the date of the service which included preparing to see the patient, [id number] patient care, completing clinical documentation, obtaining and/or reviewing separately obtained history, performing a medically appropriate examination, counseling and educating the pat ient/family/caregiver, ordering medications, tests, or procedures, and communicating with other HCPs (not separately reported). documented in this encounterProtestant [facility]acon[facility]07-07-2023 Miscellaneous Notes* Telephone Encounter - Romelia Alonso RN - 01/19/2023 2:48 PM EDT Called and spoke with patient's in regards to phone call. Per patient's , patient's symptoms of coughing, throat pain, having breathing issues have not worsened but they have not improved. No chest pain or shortness of breath per patient's . Patient has upcoming appointment with Dr Tom on 02/06- reassured patient's that they will be contacted for a sooner appointment with a Head/Neck provider per Dr Tom's recommendations and appointment request was sent to the Head/Neck administrative assistants. Also relayed Dr Tom's recommendations that if pt's condition worsens or fails to improve, patient will need to be seen at the main [place] emergency room for treatment d/t past history and symptoms. Patient's verbalized understanding of instructions. Romelia Alonso RN January 19, 2023 2:55 PM * Telephone Encounter - Luli Sullivan RN - 01/19/2023 1:47 PM EDT Patient call. Wants to get an earlier appt than 02/13/[address] Shannan Tom. Spouse C/O noting difficulty with his breathing H/O tonsil and tongue cancer a few years back. His previous ENT MD moved to [place] he has not been by ENT for 3 years. C/O a lot of phlegm and tongue and throat being sore and trouble breathing in the past 3 days. She has not noted shortness of breath. states he has been losing weight and looks more gaunt. Has been using Vicks vapo rub at night time to help his breathing Patient also C/O nerve pain in head and neck sharp pains at times. He has not PCP for a long while. Advised that a visit to ED may be prudent due to the harder time breathing. He has been refusing to go to local ED but he considering this today. Appt has been changed to see DR Tom on 02/06/23. Spouse is also going to call Oncology OLAYINKA Hussein also for input. 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 documented as of this encounter (statuses as of 01/23/2023) [facility] of Past illness Narrative* Problem Noted Date Diagnosed Date Resolved Date 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 documented as of this encounter (statuses as of 01/25/2023) [facility] of Past illness Narrative* Problem Noted Date Diagnosed Date Resolved Date 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 documented as of this encounter (statuses as of 05/21/2023) [facility]* Diagnosis Encounter for follow-up examination after completed treatment for malignant neoplasm- Primary Unspecified follow-up examination History of cancer tonsil Personal history of malignant neoplasm of other and unspecified parts of oral cavity and pharynx Sore throat Acute pharyngitis documented in this encounter [facility]* Diagnosis Encounter for follow-up examination after completed treatment for malignant neoplasm Unspecified follow-up examination History of cancer tonsil Personal history of malignant neoplasm of other and unspecified parts of oral cavity and pharynx Sore throat Acute pharyngitis documented in this encounter [facility] note* Diagnosis Onset Date Resolution Status Admit Date Acid reflux acute December 15 7:42am Epigastric abdominal pain acute December 15, 2024 7:42am Abdominal symptoms noneactive December 152024 7:42am [facility] Work Phone: Reason for referral (narrative)No reason for referral information availableBlKaiser Foundation [facility] Work Phone: Summary Purpose Family History No Family History Records Found Brother (s) Status:Active Comments:0. Father Status:Active Comments: d. Diabetes mellitus, Type II. CHF age 80 Mother Status:Active Comments: d. Hypertension. age 92, bowel obstruction Sister (s) Status:Active Comments:3. one sister with hyptension Brother (s) Status:Active Comments:0. Father Status:Active Comments: d. Diabetes mellitus, Type II. CHF age 80 Mother Status:Active Comments: d. Hypertension. age 92, bowel obstruction Sister (s) Status:Active Comments:3. one sister with hyptension Brother (s) Status:Active Comments:0. Father Status:Active Comments: d. Diabetes mellitus, Type II. CHF age 80 Mother Status:Active Comments: d. Hypertension. age 92, bowel obstruction Sister (s) Status:Active Comments:3. one sister with hyptension Brother (s) Status:Active Comments:0. Father Status:Active Comments: d. Diabetes mellitus, Type II. CHF age 80 Mother Status:Active Comments: d. Hypertension. age 92, bowel obstruction Sister (s) Status:Active Comments:3. one sister with hyptension Brother (s) Status:Active Comments:0. Father Status:Active Comments: d. Diabetes mellitus, Type II. CHF age 80 Mother Status:Active Comments: d. Hypertension. age 92, bowel obstruction Sister (s) Status:Active Comments:3. one sister with hyptension Brother (s) Status:Active Comments:0. Father Status:Active Comments: d. Diabetes mellitus, Type II. CHF age 80 Mother Status:Active Comments: d. Hypertension. age 92, bowel obstruction Sister (s) Status:Active Comments:3. one sister with hyptension Relationship Condition Age at Onset Recorded Date/T mandi mother Arthritis Unknown Hypertension Unknown father Diabetes mellitus Unknown Advance Directives No Advanced Directives Records Found Advance Directive Response Recorded Date/ Time Advance Directives No May 04, 2015 5:54pm Reason for Referral Specialty Diagnoses / Procedures Referred By Markac t Referred To Contact CT IMAGING Diagnoses Encounter for follow-up examination after completed treatment for malignant neoplasm History of cancer tonsil Sore throat Procedures CT CHEST W IVCON DIAGNOSTIC COMPUTED TOMOGRAPHY THORAX W/CONTRAST Aisha Lopez APRN.SOFTWARE SALES CONSULTANT [address] [place] [address] Ct Imaging Referral ID Status Reason Start Date Expiration Date Visits Requested Visits Authorized [id number] Authorized Auto-Generat ed Referral 01/23/2023 02/22/2024 1 1 Specialty Diagnoses / Procedures Referred By Violette t Referred To Contact CT IMAGING Diagnoses Encounter for follow-up examination after completed treatment for malignant neoplasm History of cancer tonsil Sore throat Procedures CT NECK SOFT TISSUE W IVCON CT SOFT TISSUE NECK W/CONTRAST MATERIAL Aisha Lopez APRN.SOFTWARE SALES CONSULTANT [address] [place] [address] Ct Imaging Referral ID Status Reason Start Date Expiration Date Visits Requested Visits Authorized [id number] Authorized Auto-Generat ed Referral 01/23/2023 02/22/2024 1 1 Specialty Diagnoses / Procedures Referred By Contac t Referred To Contact CT IMAGING Diagnoses Encounter for follow-up examination after completed treatment for malignant neoplasm History of cancer tonsil Sore throat Procedures CT CHEST W IVCON DIAGNOSTIC COMPUTED TOMOGRAPHY THORAX W/CONTRAST Aisha Lopez APRN.SOFTWARE SALES CONSULTANT [address] [place] [address] [place] [id number] Referral ID Status Reason Start Date Expiration Date V isits Requested Visits Authorized [id number] Closed Auto-Generate d Referral 01/23/2023 02/22/2024 1 1 Specialty Diagnoses / Procedures Referred By Contac t Referred To Contact CT IMAGING Diagnoses Encounter for follow-up examination after completed treatment for malignant neoplasm History of cancer tonsil Sore throat Procedures CT NECK SOFT TISSUE W IVCON CT SOFT TISSUE NECK W/CONTRAST MATERIAL Aisha Lopez, LAW FIRM ADMINISTRATOR.SOFTWARE SALES CONSULTANT [address] [place] [address] [place] [id number] Referral ID Status Reason Start Date Expiration Date V isits Requested Visits Authorized [id number] Closed Auto-Generate d Referral 01/23/2023 02/22/2024 1 1 Chief Complaint and Reason for Visit Chief Complaint Admit Date Abdominal complaints December 15, 2024 7:42 am E-ORDER December 18, 2024 12:38 pm Reason for Visit Admit Date Acid reflux December 15, 2024 7:42a m Epigastric abdominal pain December 15, 2024 7:42am Abdominal symptoms December 15, 2024 7:42a m Chief Complaint Admit Date Abdominal complaints December 15, 2024 7:42 am Additional Source Comments (unrecognized sect ion and content) No Status Records FoundNo Status Records FoundNo Status Records Found INFORMATION SOURCE (unrecogn ized section and content) DATE CREATED AUTHOR 08/06/2019 [facility] DATE CREATED AUTHOR AUTHOR'S ORGANIZ ATION 03/14/2023 [facility] DATE CREATED AUTHOR AUTHOR'S ORGANIZ ATION 02/06/2025 [facility] Source Comments (unrecognize d section and content) In the event this informatio n is protected by the Federal Confidentiality of Alcohol and Drug Abuse Patient Records regulations: The Federal rules restrict any use of the information to criminally investigate or prosecute any alcohol or drug abuse patient.[facility] the event this information is protected by the Federal Confidentiality of Alcohol and Drug Abuse Patient Records regulations: The Federal rules restrict any use of the information to criminally investigate or prosecute any alcohol or drug abuse patient.[facility] the event this information is protected by the Federal Confidentiality of Alcohol and Drug Abuse Patient Records regulations: The Federal rules restrict any use of the information to criminally investigate or prosecute any alcohol or drug abuse patient.[facility] the event this information is protected by the Federal Confidentiality of Alcohol and Drug Abuse Patient Records regulations: The Federal rules restrict any use of the information to criminally investigate or prosecute any alcohol or drug abuse patient.[facility] Reason for Visit (unrecogniz ed section and content) Reason Comments Future Appointment Reason Comments New Patient Reason Comments Radiology CT Specialty Diagnoses / Procedures Referred By Contkathy t Referred To Contact CT IMAGING Diagnoses Encounter for follow-up examination after completed treatment for malignant neoplasm History of cancer tonsil Sore throat Procedures CT CHEST W IVCON DIAGNOSTIC COMPUTED TOMOGRAPHY THORAX W/CONTRAST Aisha Lopez APRN.SOFTWARE SALES CONSULTANT [address] [place] [address] [place] [id number] Referral ID Status Reason Start Date Expiration Date V isits Requested Visits Authorized [id number] Closed Auto-Generate d Referral 01/23/2023 02/22/2024 1 1 Care Teams (unrecognized sec tion and content) Landscape Painter Relationship Specialty Start Date End Date Stephanie Green PCP - General Family Medicine 03/08/15 Landscape Painter Relationship Specialty Start Date End Date Stephanie Green PCP - General Family Medicine 03/08/15 Landscape Painter Relationship Specialty Start Date End Date Stephanie Green PCP - General Family Medicine 03/08/15 Landscape Painter Relationship Specialty Start Date End Date Stephanie Green PCP - General Family Medicine 03/08/15 Team Status: Active Member Role Status Dates Dr. Stephanie Green MD Family Provider Active Team Status: Inactive Member Role Status Dates BANDAR Ballesteros Attending Provider Active S tart: December 15, 2024 End: December 15, 2024 Team Status: Active Member Role Status Dates Dr. Stephanie Green MD Family Provider Active Dr. Irma Green MD Primary Care Provider Active Team Status: Inactive Member Role Status Dates Dr. Irma Green MD Primary Care Provider Active Start: December 18, 2024 End: December 18, 2024 BANDAR Ballesteros Attending Provider Active S tart: December 18, 2024 End: December 18, 2024 BANDAR Ballesteros Referring Provider Active S tart: December 18, 2024 End: December 18, 2024 Goals (unrecognized section and content) Goals may be documented in a n alternate sectionGoals may be documented in an alternate section FOR RECORDS PERTAINING TO PATIENTS WHO ARE OR HAVE BEEN ENROLLED IN A CHEMICAL DEPENDENCY/SUBSTANCEABUSE PROGRAM, SOME INFORMATION MAY BE OMITTED. This clinical summary was aggregated from multiple sources. Caution should be exercised in using it in the provision of clinical care. This summary normalizes information from multiple sources, and as a consequence, information in this document may materially change the coding, format and clinical context of patient data. In addition, data may be omitted in some cases. CLINICAL DECISIONS SHOULD BE BASED ON THE PRIMARY CLINICAL RECORDS. [facility] [employer] [facility]. provides no warranty or guarantee of the accuracy or completeness of information in this document.
[2025-02-10] MEDS: Lactated Ringers 1,000 ML 15 ML IV (06:09)
--- NOTE | 2025-02-10 06:28 | PCM.PRE.AN2 ---
ASA Classification* ASA Classification ASA Classification: 3 Assessment & Plan Anesthesia* Anesthesia Assessment Anesthesia Assessment: Discussed sedation and/or anesthesia options, risks, benefits, and alternatives with patient/parents/legal guardian/POA. Questions invited. The patient/parents/legal guardian/POA seems to understand and agrees to proceed with anesthesia plan. Reviewed the physical assessment, medical history, allergy history and patient home medications list prior to surgery/procedure/anesthetic and documented any changes. Performed airway and anesthesia risk assessments. Anesthesia Type Anesthesia Type: MAC History Source History Obtained from:: Patient and Chart Anesthesia Focused Assessment* Temperature: 97.7 F Pulse Rate: 67 Blood Pressure: 159/94 Respiratory Rate: 16 Pulse Ox: 98 Oxygen Delivery Method: Room Air Airway Assessment Mouth opens: >3 cm Mallampati Score: IV Teeth Condition: Caps/Crowns (Patient has several crowns. They are all tight.) and Missing (Patient has several missing teeth. Rest of the teeth are tight.) Neck Range of motion (ROM): Limited ROM (Somewhat Decreased) Labs Anesthesia Preop lab: CBC WBC 6.8 K/mm3 (4.4-11.0) 05/07/15 05:55 05/07/15 RBC 4.34 M/mm3 (4.6-6.2) L 05/07/15 05:55 05/07/15 Hgb 13.8 g/dl (13.0-16.5) 05/07/15 05:55 05/07/15 Hct 38.5 % (40-54) L 05/07/15 05:55 05/07/15 Plt Count 121 K/mm3 (150-450) L 05/07/15 05:55 05/07/15 CHEMISTRY Potassium 2.9 mmol/L (3.5-5.1) L 05/08/15 05:44 05/08/15 Sodium 137 mmol/L (136-145) 05/08/15 05:44 05/08/15 Magnesium 1.6 mg/dL (1.8-2.4) L 05/31/15 14:35 05/31/15 BUN 16 mg/dL (7-18) 05/08/15 05:44 05/08/15 Creatinine 1.03 mg/dL (0.70-1.30) 05/08/15 05:44 05/08/15 Glucose 123 mg/dL (70-110) H 05/08/15 05:44 05/08/15 POC Glucose 81 mg/dL (70-110) 04/26/15 17:53 04/26/15 COAG Pre-Assessment Diagnosis/Proposed Procedure Planned Operative Procedure(s): EGD Anesthesia History Anesthesia History - telemetry tech: Anesthesia History - telemetry tech Hx Hospitalization No 02/05/25 13:05 Any Problems With Anesthesia No 02/05/25 13:05 Cholinesterase deficiency No 02/05/25 13:05 You/Your Family Experience No 02/05/25 13:05 fever (hyperthermia) with Relationship Recent Exposure to Contagious No 02/10/25 05:53 Disease Does patient have nerve No 02/05/25 13:05 stimulator Patient instructed to have device shut off --Does patient have Pacemaker No 02/10/25 05:59 or ICD? When Was Last Pacemaker Check QUESTION #4 FULL TEXT: You/Your Family Experience fever (hyperthermia) with Anesthesia Last Oral Intake Last Oral intake: Last Oral Intake NPO since 03:00 02/10/25 05:59 Meds taken in AM with sips of No 02/10/25 05:59 water? Meds patient instructed to take am of surgery Any additional information?: Yes NPO since: 03:00 (Patient water at 3 AM) Meds taken in AM with sips of water?: No PONV PONV - telemetry tech: PONV - telemetry tech Female No 02/05/25 13:05 HX of Motion Sickness No 02/05/25 13:05 HX of N/V After Surgery No 02/05/25 13:05 Non-Smoker Yes 02/05/25 13:05 Duration of Surgery greater No 02/05/25 13:05 than 60 minutes Number of Risk Factors 1 02/05/25 13:05 PONV Score Low Risk 02/05/25 13:05 Height & Weight Height & Weight: Anesthesia: Height & Weight Height 5 ft 5 in 02/10/25 05:59 Weight: 78.471 kg 02/10/25 05:59 Body Mass Index (BMI) 28.8 02/10/25 05:59 Respiratory Assessment Respiratory Assessment - telemetry tech: Respiratory Tract Infection Hx - telemetry tech Hx Respiratory Tract Infection No 02/05/25 13:05 STOP Sleep Apnea STOP Sleep Apnea - telemetry tech: STOP Sleep Apnea - telemetry tech Hx Hypertension Yes: CONTROLLED WITH MEDS 02/05/25 13:05 Hx Sleep Apnea No 02/05/25 13:05 CPAP No 05/04/15 18:21 BIPAP No 05/04/15 18:21 Do you snore loudly (louder Yes 02/05/25 13:05 than talking or can be heard Do you often feel tired/ No 02/05/25 13:05 fatigued/ sleepy during daytime? Has anyone observed you stop Yes 02/05/25 13:05 breathing during sleep? STOP Results Positive 02/05/25 13:05 QUESTION #5 FULL TEXT : Do you snore loudly (louder than talking or can be heard through closed doors)? Tobacco Use History Tobacco Use History - telemetry tech: Tobacco Use History - telemetry tech Tobacco Use Smoking Status Never smoker 02/05/25 13:05 Hx Tobacco Use No 02/05/25 13:05 Years Smoking Packs Smoked per Day Smoking Cessation Date was within the last 15 years Hx Smoking Cessation Date Hx Smoking Cessation Counseling Hematologic Medial History Hematologic Hx - telemetry tech: Hematologic Medical Hx - pharmacy technician infusion Hx of Blood Transfusion No 02/05/25 13:05 Hx of Transfusion in last 3 No 02/05/25 13:05 Months Date of Last Transfusion (if within last 3 months) Ever experience any problems No 02/05/25 13:05 with transfusion(s)? Specify any problems Hx of Preganancy in last 3 N/A 02/05/25 13:05 Months Nurse Filling Out Transfusion [email or web address] 02/05/25 13:05 & Questions: Date: 02/05/25 02/05/25 13:05 Time: 13:09 02/05/25 13:05 Patient unable to answer at this time (ie. confused, unrespo /Reproduction History /Reproductive History - telemetry tech: /Reproductive Hx- telemetry tech Hx Now Gestational Age (in weeks): EDC: Hx Hx Para Hx Section SAB Active Medications Active Medications: Current Medications Generic Name Dose Route Start Last Admin Trade Name Freq PRN Reason Stop Dose Admin Lactated Ringer's 1,000 mls @ 15 mls/hr 02/10/25 05:45 02/10/25 06:09 IV 15 mls/hr .Q48H HIEU Administration PFSH Medical History Loss of hearing Wears glasses Non-smoker Fatty liver Cancer Gastric reflux History of echocardiogram Home Medications ?Medication ?Instructions ?Recorded ?Last Taken ?Type losartan 100 mg tablet 100 mg PO DAILY 04/10/15 02/09/25 07:00 History verapamil 120 mg tablet,extended 120 mg PO DAILY 04/26/15 02/09/25 07:00 History release calcium 333 mg-magnesium 133 mg-D3 1 tab PO DAILY 02/10/25 02/07/25 History 1.67 mcg-zinc 5 mg tablet multivitamin 1 tab PO DAILY 02/10/25 02/07/25 History potassium chloride 20 mEq oral 20 meq PO DAILY 02/10/25 02/07/25 History packet (Klor-Con) Allergy/AdvReac Type Severity Reaction Status Date / Time codeine AdvReac Nausea Verified 02/10/25 05:53 lactose AdvReac Nausea Verified 02/10/25 05:53 Family History Mother Arthritis Hypertension Father Diabetes Surgical History PEG (percutaneous endoscopic gastrostomy) status H/O esophagogastroduodenoscopy History of tonsillectomy Social History Smoking Status: Never smoker alcohol intake: never Review of Systems (Anesthesia) ROS Narrative System reviewed and no additional complaints, except as documented.
--- NOTE | 2025-02-10 06:30 | EGD_PTH ---
PATIENT: NOAM DOTY LOC: EN U#:[id number] AGE/SX: 69/M ROOM: RE02/10/[address]: Dr. Tim Kulkarni DO : 1955 BED: DIS: 02/10/2025 SPEC #: [id number] RECD: 02/10/25 09:45 STATUS: GREGORIA KIARA #: [id number] DIANA: 02/10/25 06:[address]: Tim Kulkarni DEPT: SURGICAL PATHOLOGY RECD BY: Darion Page ENTERED: 02/10/25 10:45 SP TYPE: EGD BIOPSY HEATHER DR: Dr. Geovani Garcia MD Tissues: A - Esophagus, NOS B - Duodenum, NOS C - Gastric mucous membrane Procedures: Immunohistochemical Stains Surgery Specimen Level IV HEADER OPERATION: EGD with biopsy PRE-OP DIAGNOSIS: Abdominal symptoms, epigastric abdominal pain, acid reflux TISSUE SUBMITTED: A- Distal esophagus biopsy, B- Duodenum biopsy, C- Gastric antrum biopsy MICROSCOPIC DIAGNOSIS A. Distal esophagus, biopsy: * Benign squamous epithelium * Oxyntocardiac type mucosa with mild chronic inflammation, negative for goblet cells B. Duodenum, biopsy: * Small bowel mucosa with no pathologic change C. Gastric antrum, biopsy: * Antral and oxyntic mucosa with mild chronic inflammation * No morphologic evidence of Helicobacter pylori organisms is identified on H&E and immunostained sections MICROSCOPIC DESCRIPTION Slides are reviewed. All matched controls reacted appropriately. These tests were developed and their performance characteristics determined by [facility]. They may not have been cleared or approved by the U.S. Food and Drug Administration. The FDA has determined that such clearance or approval is not necessary. The above immunohistochemical/dualISH markers are viewed by the Pathologist. GROSS DESCRIPTION A. Received in fixative is one container labeled with the patient's name and designated Distal esophagus biopsy. The specimen consists of multiple irregular fragments of light angulo soft tissue that in aggregate measure 0.8 x 0.6 x 0.1 cm. The specimen is totally submitted in one cassette. B. Received in fixative is one container labeled with the patient's name and designated Duodenum biopsy. The specimen consists of two irregular fragments of light angulo soft tissue that in aggregate measure 0.3 and 0.4 cm. The specimen is totally submitted in one cassette. C. Received in fixative is one container labeled with the patient's name and designated Gastric antrum biopsy. The specimen consists of three irregular fragments of light angulo soft tissue that in aggregate measure 0.1 to 0.7 cm. The specimen is totally submitted in one cassette. CT 02/10/2025 CPT:19006q3,78794
--- NOTE | 2025-02-10 06:38 | PCM.HP.STD ---
[facility] - General General Date of Admission: 02/10/25 Date of Service: 02/10/25 Chief Complaint: Abdominal pain with nausea vomiting [facility] Narrative NOAM ODTY, is a 69 M who presents with a Chief Complaint: nausea/vomiting He presents regarding epigastric abdominal pain that starts 2 hours postprandial. He had been diagnosed with tonsillar cancer, underwent chemotherapy and radiation therapy by Dr. Lozada. Reports frequent dry mouth due to saliva glands being damaged or removed. He knows to take smaller bites and keep foods moist to avoid difficulty swallowing. He reports that he does the best with mashed potato consistency. He reports increased sinus drainage and occasional reflux. He denies heartburn, cough, throat clearing, nausea, emesis, abdominal bloating, constipation, diarrhea, hematochezia, and melena. He states that the epigastric abdominal is not dependent on any type of food as it occurs after every meal now. It started being a mild pain occasionally. Currently he rates the pain as 7/10 and describes it as burning and gnawing. He denies taking any PPIs, H2As, Tums or Maalox. He just massages the area and deals with it. It doesn't completely relieve the pain, but helps a little. He denies knowing if he's ever had a H.pylori infection or ulcer before. 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 [facility] Medical History Loss of hearing Wears glasses Non-smoker Fatty liver Cancer Gastric reflux History of echocardiogram Home Medications ?Medication ?Instructions ?Recorded ?Last Taken ?Type losartan 100 mg tablet 100 mg PO DAILY 04/10/15 02/09/25 07:00 History verapamil 120 mg tablet,extended 120 mg PO DAILY 04/26/15 02/09/25 07:00 History release calcium 333 mg-magnesium 133 mg-D3 1 tab PO DAILY 02/10/25 02/07/25 History 1.67 mcg-zinc 5 mg tablet multivitamin 1 tab PO DAILY 02/10/25 02/07/25 History potassium chloride 20 mEq oral 20 meq PO DAILY 02/10/25 02/07/25 History packet (Klor-Con) Allergy/AdvReac Type Severity Reaction Status Date / Time codeine AdvReac Nausea Verified 02/10/25 05:53 lactose AdvReac Nausea Verified 02/10/25 05:53 Family History Mother Arthritis Hypertension Father Diabetes Surgical History PEG (percutaneous endoscopic gastrostomy) status H/O esophagogastroduodenoscopy History of tonsillectomy Social History Smoking Status: Never smoker alcohol intake: never ROS Constitutional Constitutional: Denies fatigue, fever(s), poor appetite, weight gain or weight loss Gastrointestinal Gastrointestinal: Denies belching, bloating, change in bowel habits, change in stool character, chewing difficulty, coffee ground emesis, constipation, cramping, diarrhea, dyspepsia, dysphagia, early satiety, excessive flatus, fecal incontinence, heartburn, hematemesis, hematochezia, hemorrhoids, loose stools, melena, nausea, odynophagia, rectal bleeding, tenesmus, vomiting or weight changes Vital Signs Vital Signs Vital Signs: 02/10/25 05:53 02/10/25 05:59 02/10/25 06:35 Temperature 97.7 F L 97.7 F L Temperature Source Temporal Pulse Rate 67 67 Respiratory Rate 16 16 Respiratory Pattern Normal Blood Pressure 159/94 H 159/94 H Blood Pressure Mean 115 Blood Pressure Source Monitor Blood Pressure Position Semi-Fowlers Blood Pressure Location Left Arm Pulse Ox 98 98 Oxygen Delivery Method Room Air Room Air Weight Weight: 173 lb Body Mass Index (BMI) 28.8 Physical Exam Const alert, oriented x3, no apparent distress and healthy appearing General Appearance: cooperative GI normal to inspection, nondistended, normoactive bowel sounds, soft to palpation, non-tender and non-distended Percussion: normal to percussion Rectal Exam: deferred Assessment & Plan Assessment/Plan (1) Acid reflux: QUALIFIERS: Esophagitis presence: esophagitis presence not specified Qualified Code(s): K21.9 - Gastro-esophageal reflux disease without esophagitis (2) Epigastric abdominal pain: PLAN: Assessment and Plan Assessment and Plan (1) Abdominal symptoms: (2) Epigastric abdominal pain: Status: Acute (3) Acid reflux: Status: Acute Qualifiers: Esophagitis presence: esophagitis presence not specified Qualified Code(s): K21.9 - Gastro-esophageal reflux disease without esophagitis Orders: Orders H. PYLORI STOOL AG Today K21.9 - Gastro-esophageal reflux disease without esophagitis, R10.13 - Epigastric pain Medications: New omeprazole Take 30 minutes before eating breakfast and dinner. 40 mg PO BID 60 caps 3RF famotidine 40 mg PO QHS 30 tabs 3RF Plan NOAM DOTY, is a 69 M who presents to the office today for establishment with [facility] regarding epigastric abdominal pain that starts 2 hours postprandial. He had been diagnosed with tonsillar cancer, underwent chemotherapy and radiation therapy by Dr. Lozada. Reports frequent dry mouth due to saliva glands being damaged or removed. He knows to take smaller bites and keep foods moist to avoid difficulty swallowing. He reports that he does the best with mashed potato consistency. He reports increased sinus drainage and occasional reflux. Differential diagnoses include: PUD, gastritis, H.pylori infection. stool for H.pylori ag omeprazole 40mg PO twice daily 30minutes breakfast and dinner; START AFTER SUBMISSION OF STOOL TEST famotidine 40mg PO QHS schedule EGD office FU 1wk after EGD
--- NOTE | 2025-02-10 06:59 | PCM.POST.ANE ---
Anesthesia: Postop Eval I Current Vital Signs Temperature: 98.1 F Pulse Rate: 67 Blood Pressure: 89/69 Respiratory Rate: 16 Pulse Ox: 95 Oxygen Delivery Method: Room Air Assessment Airway patent: Yes Spontaneous unlabored respirations: Yes Mental status: Asleep nausea: No Vomiting: No Anesthesia Complication: No Fluid Hydration Crystalloid volume administer (ml): 300 Total IV fluid infused: 300 Progress Note Anesthesia document: Postop Eval 1 completed: Yes
--- NOTE | 2025-02-10 07:02 | OP.PROVAT_ITS ---
02/10/2025 Geovani Garcia Md Re : Upper GI endoscopy procedure for Haris Cainr Jose This procedure was performed on Monday, February 10, 2025. My impressions and recommendations are as follows: Impressions : - Possible chronic sinusitis contributing to symptoms. - LA Grade B reflux esophagitis with no bleeding. Biopsied. - Erythematous mucosa in the antrum. Biopsied. - Erythematous duodenopathy. Biopsied. Recommendations : - Discharge patient to home. - Resume previous diet. - Continue present medications. - Await pathology results. - Consider CT scan of the sinuses My findings are described in the full procedure note, which is enclosed. If I can be of further assistance, please feel free to contact me at . Sincerely, Tim Friend, 02/10/2025 7:01:16 AM This report has been signed electronically.
--- NOTE | 2025-02-10 07:02 | OP.EGD_ITS ---
Patient Name: Haris Paniagua Procedure Date: 02/10/2025 6:12 AM Date of : 1955 Age: 69 Procedure: Upper GI endoscopy Indications: Epigastric abdominal pain, Dyspepsia, Indigestion, Suspected esophageal reflux, Failure to respond to medical treatment Providers: DO Sophie Boyd MD: Geovani Garcia Md Medicines: Monitored Anesthesia Care Patient Profile: This is a 69 year old male. Refer to note in patient chart for documentation of history and physical. Patient has symptoms of acute epigastric abdominal pain, acute dyspepsia, acute nausea and acute vomiting. Complications: No immediate complications. Procedure: Pre-Anesthesia Assessment: - Prior to the procedure, a History and Physical was performed, and patient medications and allergies were reviewed. The patient is competent. The risks and benefits of the procedure and the sedation options and risks were discussed with the patient. All questions were answered and informed consent was obtained. Patient identification and proposed procedure were verified by the physician in the pre-procedure area. Mental Status Examination: alert and oriented. Airway Examination: normal oropharyngeal airway and neck mobility. Respiratory Examination: clear to auscultation. CV Examination: normal. Prophylactic Antibiotics: The patient does not require prophylactic antibiotics. Prior Anticoagulants: The patient has taken no anticoagulant or antiplatelet agents except for NSAID medication. ASA Grade Assessment: II - A patient with mild systemic disease. After reviewing the risks and benefits, the patient was deemed in satisfactory condition to undergo the procedure. The anesthesia plan was to use monitored anesthesia care (MAC). Immediately prior to administration of medications, the patient was re-assessed for adequacy to receive sedatives. The heart rate, respiratory rate, oxygen saturations, blood pressure, adequacy of pulmonary ventilation, and response to care were monitored throughout the procedure. The physical status of the patient was re-assessed after the procedure. After obtaining informed consent, the endoscope was passed under direct vision. Throughout the procedure, the patient's blood pressure, pulse, and oxygen saturations were monitored continuously. The Endoscope was introduced through the mouth, and advanced to the third part of the duodenum. Small bowel enteroscopy was deemed necessary. The upper GI endoscopy was accomplished without difficulty. The patient tolerated the procedure well. Scope In: 6:46:22 AM Scope Out: 6:50:13 AM Total Procedure Duration Time 0 hours 3 minutes 51 seconds Findings: There was a lot of mucus seen coming from the sinuses on the soft palate and at the level of the epiglottis through the oropharynx and going into the esophagus. LA Grade B (one or more mucosal breaks greater than 5 mm, not extending between the tops of two mucosal folds) esophagitis with no bleeding was found 36 to 40 cm from the incisors. Biopsies were taken with a cold forceps for histology. Verification of patient identification for the specimen was done. Estimated blood loss was minimal. Patchy mildly erythematous mucosa without bleeding was found in the gastric antrum. Biopsies were taken with a cold forceps for histology. Verification of patient identification for the specimen was done. Estimated blood loss was minimal. Biopsies were taken with a cold forceps for Helicobacter pylori testing. Verification of patient identification for the specimen was done. Estimated blood loss was minimal. Localized mildly erythematous mucosa without active bleeding and with no stigmata of bleeding was found in the duodenal bulb and in the second portion of the duodenum. Biopsies were taken with a cold forceps for histology. Verification of patient identification for the specimen was done. Estimated blood loss was minimal. Impression: - Possible chronic sinusitis contributing to symptoms. - LA Grade B reflux esophagitis with no bleeding. Biopsied. - Erythematous mucosa in the antrum. Biopsied. - Erythematous duodenopathy. Biopsied. Recommendation: - Discharge patient to home. - Resume previous diet. - Continue present medications. - Await pathology results. - Consider CT scan of the sinuses Procedure Code(s): --- Professional --- 34390, Small intestinal endoscopy, enteroscopy beyond second portion of duodenum, not including ileum; with biopsy, single or multiple CPT copyright 2021 [employer]. All rights reserved. The codes documented in this report are preliminary and upon manager custom review may be revised to meet current compliance requirements. Tim Kulkarni DO 02/10/2025 7:01:16 AM This report has been signed electronically. Number of Addenda: 0 Note Initiated On: 02/10/2025 6:12 AM
== END 2025-02-10 07:55 | disposition home or self-care (01) ==
LOC: EN 05:14 → AC 05:15
PROVIDERS: PCP Family Medicine; Referring Provider Family Medicine; Visit Provider Internal Medicine Gastroenterology
PROC: 0DJ08ZZ Inspection of Upper Intestinal Tract, Via Natural or Artificial Opening Endoscopic (ICD-10-PCS; CPT 43235; principal; 2025-02-10 06:25)
DX: K21.00 Gastro-esophageal reflux disease with esophagitis, without bleeding (principal); K31.89 Other diseases of stomach and duodenum; I10 Essential (primary) hypertension; Z79.899 Other long term (current) drug therapy; Z85.818 Personal history of malignant neoplasm of other sites of lip, oral cavity, and pharynx
CPT/HCPCS: 43239; 88305; 88342; J2405